=== PATIENT | male | born 1980 | race African-American/Black ===

== ENCOUNTER 2016-11-21 08:47 | Emergency (ER) | payer OTHER, SELFPAY ==
[2016-11-21] MEDS ORDERED: Sodium Chloride 0.9% 2.5 ML Syringe FLUSH PRN (08:59)
[2016-11-21] MEDS ORDERED: Sodium Chloride 0.9% 10 ML Syringe FLUSH PRN (08:59)
[2016-11-21] MEDS ORDERED: Sodium Chloride 0.9% 1,000 ML IV ONE ×2 (09:04→10:58)
--- NOTE | 2016-11-21 09:13 | EDM.PDOC ---
ED HPI GENERAL MEDICAL PROBLEM - General Chief Complaint: General Stated Complaint: FALL Time Seen by Provider: 11/21/16 08:49 Source of Information: Reports: Patient History Limitations: Reports: No limitations - History of Present Illness INITIAL COMMENTS - FREE TEXT/NARRATIVE: History of present illness: [] Patient slipped on the ice 2 days ago and saw black spots but did not lose consciousness. He has abrasion to his forehead and left side of his face and comes in complaining of a headache and he feels he is in sickle cell crisis in his right knee. Patient denies any recent illnesses, fevers, chills, cough, nausea, vomiting, abdominal pain or changes in urine. Review of systems: As per history of present illness and below otherwise all systems reviewed and negative. Past medical history: As per history of present illness and as reviewed below otherwise noncontributory. Surgical history: As per history of present illness and as reviewed below otherwise noncontributory. Social history: No reported history of drug or alcohol abuse. Family history: As per history of present illness and as reviewed below otherwise noncontributory. Physical exam: General: Well developed, well nourished in NAD HEENT: Abrasion to left skin just inferior to his eye, normocephalic, pupils reactive, negative for conjunctival pallor or scleral icterus, mucous membranes moist, throat clear, neck supple, nontender, trachea midline. Lungs: Clear to auscultation, breath sounds equal bilaterally, chest nontender. Heart: S1S2, regular, negative for clicks, rubs, or JVD. Abdomen: Soft, nondistended, nontender. Negative for masses or hepatosplenomegaly. Negative for costovertebral tenderness. Pelvis: Stable nontender. Genitourinary: Deferred. Rectal: Deferred. Extremities: Atraumatic, no sign of external trauma, swelling or effusion to the right knee, negative for cords or calf pain. Neurovascular unremarkable. Neuro: Awake, alert, oriented. Cranial nerves II through XII unremarkable. Cerebellum unremarkable. Motor and sensory unremarkable throughout. Exam nonfocal. Diagnostics: [] CT head was negative for bleed or fracture patient has an elevated white count with a shift however no source of infection denies any fevers. Therapeutics: [] IV hydration and morphine were given with improvement Impression: [] Fall, blunt head trauma, facial abrasion, elevated white count, history of sickle cell disease Plan: [] Followup PMD return if symptoms worsen Definitive disposition and diagnosis as appropriate pending reevaluation and review of above. Right Knee Pain Score (Numeric/FACES): 7 Headache Pain Score (Numeric/FACES): 7 - Related Data Allergies Allergy/AdvReac Type Severity Reaction Status Date / Time No Known Allergies Allergy Verified 11/21/16 09:01 Home Meds: Home Meds . [No Known Home Meds] 11/21/16 [History] Past Medical History Genitourinary History: Reports: None Hematologic History: Reports: Blood transfusion(s), Sickle cell anemia Dermatologic History: Reports: Eczema, Other (see below) Other Dermatologic History: Experiences only when home [facility] - Past Surgical History Male Surgical History: Reports: Other (see below) Other Male Surgeries/Procedures: Ingunial hernia repair 1995 Dermatological Surgical History: Reports: None Social & Family History - Family History Family Medical History: Noncontributory Hematologic: Reports: Sickle cell anemia - Tobacco Use Smoking Status *Q: Former Smoker Years of Tobacco use: 10 Packs/Tins Daily: 1 - Caffeine Use Caffeine Use: Reports: None - Alcohol Use Days Per Week of Alcohol Use: 4 Number of Drinks Per Day: 1 Total Drinks Per Week: 4 - Recreational Drug Use Recreational Drug Use: No ED ROS GENERAL - Review of Systems Review Of Systems: See Below (History of present illness) ED EXAM, GENERAL - Physical Exam Exam: See Below (See history of present illness) Course - Vital Signs Last Recorded V/S: Last Vital Signs Temp 37.2 C 11/21/16 09:02 Pulse 113 H 11/21/16 09:02 Resp 16 11/21/16 09:02 BP 131/73 11/21/16 09:02 Pulse Ox 90 L 11/21/16 09:02 - Orders/Labs/Meds Orders: Active Orders 24 hr Category Date Time Status Head wo Cont [CT] Stat Exams 11/21/16 09:00 Taken Morphine Med 11/21/16 09:23 Active 6 mg IVPUSH ASDIRECTED PRN Sodium Chloride 0.9% [Saline Flush] Med 11/21/16 08:59 Active 10 ml FLUSH ASDIRECTED PRN Sodium Chloride 0.9% [Saline Flush] Med 03/11/17 08:59 Active 2.5 ml FLUSH ASDIRECTED PRN Peripheral IV Insertion Adult [OM.PC] Stat Oth 11/21/16 08:59 Ordered Medication Orders Morphine Sulfate (Morphine) 6 mg IVPUSH ASDIRECTED PRN PRN Reason: Pain Stop: 11/23/16 09:20 Last Admin: 11/21/16 09:31 Dose: 6 mg Sodium Chloride (Saline Flush) 10 ml FLUSH ASDIRECTED PRN PRN Reason: Keep Vein Open Last Admin: 11/21/16 09:17 Dose: 10 ml Sodium Chloride (Saline Flush) 2.5 ml FLUSH ASDIRECTED PRN PRN Reason: Keep Vein Open Last Admin: 11/21/16 09:17 Dose: 2.5 ml Labs: Laboratory Tests 11/21/16 11/21/16 Range/Units 09:16 09:16 WBC 19.18 H (4.0-11.0) K/uL RBC 4.91 (4.50-5.90) M/uL Hgb 13.6 (13.0-17.0) g/dL Hct 37.4 L (38.0-50.0) % MCV 76.2 L (80.0-98.0) fL MCH 27.7 (27.0-32.0) pg MCHC 36.4 (31.0-37.0) g/dL RDW Std Deviation 60.2 (28.0-62.0) fl RDW Coeff of Mckay 22 H (11.0-15.0) % Plt Count 334 (150-400) K/uL MPV 9.10 (7.40-12.00) fL Add Manual Diff YES Neutrophils % (Manual) 82 H (48.0-80.0) % Band Neutrophils % 1 % Lymphocytes % (Manual) 11 L (16.0-40.0) % Monocytes % (Manual) 6 (0.0-15.0) % Nucleated RBC % 4.4 /100WBC Absolute Seg Neuts 15.7 Band Neutrophils # 0.2 Lymphocytes # (Manual) 2.1 Monocytes # (Manual) 1.2 Nucleated RBCs # 0 K/uL Sodium 138 (136-146) mmol/L Potassium 4.1 (3.5-5.1) mmol/L Chloride 107 (98-110) mmol/L Carbon Dioxide 21 (21-31) mmol/L BUN 8 (6.0-23.0) mg/dL Creatinine 1.1 (0.6-1.5) mg/dL Est Cr Clr Drug Dosing 79.20 mL/min Estimated GFR (MDRD) > 60.0 ml/min Glucose 113 H (60-110) mg/dL Calcium 8.8 (8.8-10.8) mg/dL Total Bilirubin 4.1 H (0.1-1.5) mg/dL AST 33 (5-40) IU/L ALT 24 (8-54) IU/L Alkaline Phosphatase 83 (40-150) Total Protein 7.8 (6.0-8.0) g/dL Albumin 4.2 (3.5-5.0) g/dL Globulin 3.6 H (2.0-3.5) g/dL Albumin/Globulin Ratio 1.2 L (1.3-2.8) Meds: Medications Generic Name Dose Route Start Last Admin Trade Name Yoelq PRN Reason Stop Dose Admin Morphine Sulfate 6 mg 11/21/16 09:23 11/21/16 09:31 Morphine IVPUSH 11/23/16 09:20 6 mg ASDIRECTED PRN Administration Pain Sodium Chloride 10 ml 11/21/16 08:59 11/21/16 09:17 Saline Flush FLUSH 10 ml ASDIRECTED PRN Administration Keep Vein Open Sodium Chloride 2.5 ml 11/21/16 08:59 11/21/16 09:17 Saline Flush FLUSH 2.5 ml ASDIRECTED PRN Administration Keep Vein Open Discontinued Medications Generic Name Dose Route Start Last Admin Trade Name Deejay PRN Reason Stop Dose Admin Sodium Chloride 1,000 mls @ 999 mls/hr 11/21/16 09:04 11/21/16 09:17 Normal Saline IV 11/21/16 10:04 999 mls/hr .Bolus ONE Administration Morphine Sulfate 6 mg 11/21/16 09:19 Morphine IVPUSH 11/21/16 11:20 Q1H PRN Pain Departure - Departure Time of Disposition: 10:09 Disposition: Home, Self-Care 01 Condition: good Clinical Impression: Blunt head trauma Qualifiers: Encounter type: initial encounter Qualified Code(s): S09.8XXA - Other specified injuries of head, initial encounter Forms: ED Department Discharge Additional Instructions: The following information is given to patients seen in the emergency department who are being discharged to home. This information is to outline your options for follow-up care. We provide all patients seen in our emergency department with a follow-up referral. The need for follow-up, as well as the timing and circumstances, are variable depending upon the specifics of your emergency department visit. If you don't have a primary care physician on staff, we will provide you with a referral. We always advise you to contact your personal physician following an emergency department visit to inform them of the circumstance of the visit and for follow-up with them and/or the need for any referrals to a consulting specialist. The emergency department will also refer you to a specialist when appropriate. This referral assures that you have the opportunity for follow-up care with a specialist. All of these measure are taken in an effort to provide you with optimal care, which includes your follow-up. Under all circumstances we always encourage you to contact your private physician who remains a resource for coordinating your care. When calling for follow-up care, please make the office aware that this follow-up is from your recent emergency room visit. If for any reason you are refused follow-up, please contact the [facility] Emergency Department at and asked to speak to the emergency department charge nurse. Motrin and/or Tylenol for pain increase fluids. Followup PMD next week turn here symptoms worsen or change [facility] [address] [place] [id number] - My Orders Last 24 Hours: My Active Orders 11/21/16 08:59 Sodium Chloride 0.9% [Saline Flush] 10 ml FLUSH ASDIRECTED PRN Sodium Chloride 0.9% [Saline Flush] 2.5 ml FLUSH ASDIRECTED PRN Peripheral IV Insertion Adult [OM.PC] Stat 11/21/16 09:00 Head wo Cont [CT] Stat 11/21/16 09:23 Morphine 6 mg IVPUSH ASDIRECTED PRN - Assessment/Plan Last 24 Hours: My Active Orders 11/21/16 08:59 Sodium Chloride 0.9% [Saline Flush] 10 ml FLUSH ASDIRECTED PRN Sodium Chloride 0.9% [Saline Flush] 2.5 ml FLUSH ASDIRECTED PRN Peripheral IV Insertion Adult [OM.PC] Stat 11/21/16 09:00 Head wo Cont [CT] Stat 11/21/16 09:23 Morphine 6 mg IVPUSH ASDIRECTED PRN
[2016-11-21] MEDS ORDERED: Morphine 2 MG/ML Syringe IVPUSH PRN ×3 (09:19→11:05)
[2016-11-21 09:43] LABS: CHLORIDE,CL 107 mmol/L (98-110); SODIUM,NA 138 mmol/L (136-146)
[2016-11-21] MEDS ORDERED: Acetaminophen 325 MG Tab PO ONE (10:55)
[2016-11-21] MEDS ORDERED: cefTRIAXone 1 GM in Premix Bag 1 BAG IV ONE (12:18)
[2016-11-21] MEDS ORDERED: Bacitracin Oint 1 GM U/D Packet ONE (12:33)
[2016-11-21] MEDS ORDERED: Bacitracin Oint 1 GM U/D Packet TOP ONE (12:34)
[2016-11-21 13:37] VITALS: BP 125/76
--- NOTE | 2016-11-23 20:05 | CT ---
EXAM DATE: 11/21/16 PATIENT'S AGE: 36 Patient: [facility] Facility: [place], [place] Site . Site : 1980 Study: CT Head wo cont [id number] 9:30:54 AM Ordering Physician: Jose Guadalupe Kraft Final Report: Indication: Fall. Head injury. Comparison: None. Technique: [place] CT of the head without contrast. Findings: Normal brain parenchymal morphology. No acute intracranial hemorrhage, acute infarct, mass effect, or fracture. No midline shift. No abnormal ventricular dilatation. Normal calvarium and skull base. Visualized paranasal sinuses and mastoid air cells are clear. Visualized orbits are unremarkable. Impression: 1. No acute intracranial abnormality. 2. Normal brain parenchymal morphology. Dictated by Donnie Bustillo MD @ Nov 21 2016 9:38AM (Electronic Signature) Report Signed by Proxy and Original Signed Document filed in the Medical Record. [facility]
--- NOTE | 2016-11-23 20:07 | CR ---
EXAM DATE: 11/21/16 PATIENT'S AGE: 36 Patient: [facility] Facility: [place], [place] Site . Site : 1980 Study: XRay Chest [id number]/11/2017 11:25:25 AM Ordering Physician: Jose Guadalupe Kraft Final Report: Indication: Pain. SOB. Sickle cell anemia. Technique: PA and lateral. Comparison: 07/01/2016. Findings: Lungs and pleural space is clear. Heart size and pulmonary vasculature within normal limits. Vertebral body endplate impressions at numerous levels, characteristic of sickle cell anemia. No other bony abnormality. Impression: 1. Clear lungs. 2. Vertebral body abnormalities characteristic of sickle cell anemia, as before. Dictated by Raman Amaya MD @ Nov 21 2016 11:37AM (Electronic Signature) Report Signed by Proxy and Original Signed Document filed in the Medical Record. [facility]
== END 2016-11-21 13:00 | disposition home or self-care (01) ==
LOC: MW.ED 08:47
DX: S09.90XA Unspecified injury of head, initial encounter (principal); S00.81XA Abrasion of other part of head, initial encounter; Z87.891 Personal history of nicotine dependence; W00.0XXA Fall on same level due to ice and snow, initial encounter
CPT/HCPCS: 36415; 70450; 71020; 80053; 81001; 85025; 87040; 96361; 96365; 96375; 96376; 99284; A9270; J0696; J2270; J7040

== ENCOUNTER 2016-11-22 13:55 | Inpatient (IN) | payer OTHER, SELFPAY ==
[2016-11-22] MEDS ORDERED: Sodium Chloride 0.9% 1,000 ML IV ONE (13:56)
[2016-11-22] MEDS ORDERED: Sodium Chloride 0.9% 2.5 ML Syringe FLUSH PRN (13:56)
[2016-11-22] MEDS ORDERED: Sodium Chloride 0.9% 10 ML Syringe FLUSH PRN (13:56)
[2016-11-22] MEDS ORDERED: Albuterol/Ipratropium 3.0-0.5 MG/3 ML Neb Soln NEB ONE (13:58)
[2016-11-22] MEDS ORDERED: Ibuprofen 600 MG Tab PO ONE (14:18)
[2016-11-22 14:31] LABS: ACETAMINOPHEN < 3.0 ug/mL; CHLORIDE,CL 104 mmol/L (98-110); SODIUM,NA 135 mmol/L (136-146)
[2016-11-22] MEDS ORDERED: Levofloxacin/Dextrose 5%-Water 500 MG in Premix Bag 1 BAG IV ONE (15:32)
[2016-11-22] MEDS ORDERED: Morphine 2 MG/ML Syringe IVPUSH PRN (16:50)
[2016-11-22] MEDS ORDERED: Ondansetron 4 MG/2 ML SDV IVPUSH PRN (16:50)
--- NOTE | 2016-11-22 16:56 | PCM.HP ---
H&P History of Present Illness - General Admit Problem/Dx: Admission Diagnosis/Problem Admission Diagnosis/Problem Pneumonia - History of Present Illness Initial Comments - Free Text/Narative: 36 yo male with pmh of sickle cell disease. He reports that he slipped and fell two days ago. He was seen in the ED yesterday for this as he was not feeling well. He was noted to have a fever and WBC of 19,000. CT head and CXR were unremarkable. He was given Rocephin and discharged home. He presents again today reporting fevers and chills, He has a cough with shortness of breath but denies any chest pain. He denies any myalgias or joint pain which he gets with his sickle cell crisis. He reports recent travel to [facility] and [place]. In the ED his WBC increased to 24,000 and repeat CXR showed right lung infiltrate. He was given Levaquin and one liter bolus on NS. Headache Pain Score (Numeric/FACES): 5 - Related Data Allergies/Adverse Reactions: Allergies Allergy/AdvReac Type Severity Reaction Status Date / Time No Known Allergies Allergy Verified 11/22/16 14:06 Home Medications: Home Meds . [No Known Home Meds] 11/21/16 [History] Past Medical History HEENT History: Reports: None Cardiovascular History: Reports: None Respiratory History: Reports: None Gastrointestinal History: Reports: None Genitourinary History: Reports: None Musculoskeletal History: Reports: None Neurological History: Reports: None, Headaches, chronic Psychiatric History: Reports: None Endocrine/Metabolic History: Reports: None Hematologic History: Reports: Blood transfusion(s), Sickle cell anemia Immunologic History: Reports: None Oncologic (Cancer) History: Reports: None Dermatologic History: Reports: Eczema, Other (see below) Other Dermatologic History: Experiences only when home [facility] - Infectious Disease History Infectious Disease History: Reports: None - Past Surgical History Head Surgeries/Procedures: Reports: None HEENT Surgical History: Reports: None Cardiovascular Surgical History: Reports: None Respiratory Surgical History: Reports: None GI Surgical History: Reports: None, Hernia, inguinal Other GI Surgeries/Procedures: Ingunial hernia repair 1996 Male Surgical History: Reports: None Endocrine Surgical History: Reports: None Neurological Surgical History: Reports: None Musculoskeletal Surgical History: Reports: None Dermatological Surgical History: Reports: None Social & Family History - Family History Family Medical History: Noncontributory HEENT: Reports: None Hematologic: Reports: Sickle cell anemia - Tobacco Use Smoking Status *Q: Former Smoker Years of Tobacco use: 10 Packs/Tins Daily: 0.5 Used Tobacco, but Quit: Yes Month Tobacco Last Used: 09/2013 Second Hand Smoke Exposure: No - Caffeine Use Caffeine Use: Reports: None - Alcohol Use Days Per Week of Alcohol Use: 4 Number of Drinks Per Day: 1 Total Drinks Per Week: 4 Date of Last Drink: 11/17/16 - Recreational Drug Use Recreational Drug Use: No H&P Review of Systems - Review of Systems: Review Of Systems: See Below General: Reports: fever, chills HEENT: Reports: no symptoms. Denies: eye pain, headaches, sinus congestion, sore throat, visual changes Pulmonary: Reports: cough Cardiovascular: Reports: no symptoms Gastrointestinal: Reports: No symptoms Genitourinary: Reports: no symptoms Musculoskeletal: Reports: no symptoms Skin: Reports: no symptoms. Denies: rash, erythema Psychiatric: Reports: no symptoms Neurological: Reports: no symptoms Hematologic/Lymphatic: Reports: no symptoms. Denies: easy bleeding, easy bruising, swollen glands Immunologic: Reports: no symptoms Exam - Exam Exam: See Below - Vital Signs Vital Signs: Last Vital Signs Temp 37.2 C 11/22/16 15:45 Pulse 89 11/22/16 15:45 Resp 16 11/22/16 15:45 BP 126/70 11/22/16 15:45 Pulse Ox 93 L 11/22/16 15:45 Weight: 66.497 kg - Exam General: alert, oriented, 4 HEENT: Mucosa moist & pink, Posterior pharynx clear, Scleral icterus Neck: supple, trachea midline. No: lymphadenopathy, JVD Lungs: Clear to auscultation, Normal respiratory effort. No: Decreased breath sounds, Crackles, Rales, Wheezing Cardiovascular: regular rate, regular rhythm. No: systolic murmur, diastolic murmur Abdomen: normal bowel sounds, soft. No: peritoneal signs, distention, tenderness, hepatomegaly, splenomegaly Skin: warm, dry, intact Neurological: No: focal deficit - Patient Data Result Diagrams: 11/23/16 06:51 11/23/16 06:51 *Q Meaningful Use (ADM) - VTE *Q VTE Criteria *Q: - Stroke *Q Stroke Criteria *Q: - AMI *Q AMI Criteria *Q: Problem List Initiated/Reviewed/Updated: Yes Orders Last 24hrs: Active Orders 24 hr Category Date Time Status Dextrose 5%-1/2 Normal Saline @ 150 MLS/HR(1000ml) Med 11/22/16 17:00 Ordered Dextrose 5%-0.45% NaCl [Dextrose 5%-1/2 NS] 1,000 ml IV ASDIRECTED Levofloxacin/Dextrose 5%-Water [Levaquin in D5W 750 MG/ Med 11/23/16 17:00 Ordered 150 ML] 750 mg Premix Bag 1 bag IV Q24H Medication Orders Dextrose/Sodium Chloride (Dextrose 5%-1/2 Ns) 1,000 mls @ 150 mls/hr IV ASDIRECTED FRANNY Sodium Chloride (Saline Flush) 10 ml FLUSH ASDIRECTED PRN PRN Reason: Keep Vein Open Last Admin: 11/22/16 14:16 Dose: 10 ml Sodium Chloride (Saline Flush) 2.5 ml FLUSH ASDIRECTED PRN PRN Reason: Keep Vein Open Last Admin: 11/22/16 14:16 Dose: 2.5 ml Assessment/Plan Comment:: 36 yo male admitted with fevers, new infiltrate on CXR and cough. We will treat for community acquired pneumonia but cannot exclude a mild acute chest syndrome. We will give Levaquin and IVFs of D5 1/2NS. Blood and sputum cultures are pending.
[2016-11-22] MEDS: Dextrose 5%-0.45% NaCl 1,000 ML IV SCH (17:16)
[2016-11-22] MEDS: Heparin Sodium 5,000 Units/ML Vial SUBCUT SCH (18:53)
[2016-11-23] MEDS: Acetaminophen 325 MG Tab PO PRN ×4 (00:27→23:16)
[2016-11-23] MEDS: Dextrose 5%-0.45% NaCl 1,000 ML IV SCH ×3 (00:28→16:30)
[2016-11-23] MEDS ORDERED: Benzonatate 100 MG Cap PO PRN (00:37)
[2016-11-23] MEDS: Heparin Sodium 5,000 Units/ML Vial SUBCUT SCH ×3 (02:56→16:15)
[2016-11-23 07:43] LABS: CHLORIDE,CL 106 mmol/L (98-110); SODIUM,NA 137 mmol/L (136-146)
[2016-11-23] MEDS ORDERED: Albuterol/Ipratropium 3.0-0.5 MG/3 ML Neb Soln NEB PRN (09:01)
[2016-11-23] MEDS ORDERED: Albuterol/Ipratropium 3.0-0.5 MG/3 ML Neb Soln ONE (09:03)
[2016-11-23] MEDS ORDERED: Piperacillin/Tazobactam 4.5 GM in Sodium Chloride 0.9% 100 ML IV SCH (09:15)
[2016-11-23] MEDS ORDERED: Iopamidol 755 MG/ML 500 ML Multipack Bottle IVPUSH STA (09:21)
[2016-11-23] MEDS: Oseltamivir 75 MG Cap PO SCH ×2 (10:19→20:52)
--- NOTE | 2016-11-23 11:35 | PCM.PN ---
- General Info Date of Service: 11/23/16 - Review of Systems Systems Review Comment:: Patient reports fevers and chills last night, this morning was desating to the 70s on NC, feeling better with nonrebreather. - Patient Data Vitals - most recent: Last Vital Signs Temp 38.1 C 11/23/16 09:15 Pulse 135 H 11/23/16 09:15 Resp 20 11/23/16 09:15 BP 125/82 11/23/16 09:15 Pulse Ox 92 L 11/23/16 09:40 Weight - most recent: 66.497 kg I&O - last 24 hours: Intake & Output 11/22/16 11/23/16 11/23/16 22:59 06:59 14:59 Intake Total 0 800 Output Total 200 850 Balance -200 -50 Lab Results last 24 hrs: Laboratory Results - last 24 hr 11/23/16 11/23/16 Range/Units 06:51 06:51 WBC 28.88 H (4.0-11.0) K/uL RBC 4.67 (4.50-5.90) M/uL Hgb 13.2 (13.0-17.0) g/dL Hct 36.2 L (38.0-50.0) % MCV 77.5 L (80.0-98.0) fL MCH 28.3 (27.0-32.0) pg MCHC 36.5 (31.0-37.0) g/dL RDW Std Deviation 62.3 H (28.0-62.0) fl RDW Coeff of Mckay 23 H (11.0-15.0) % Plt Count 304 (150-400) K/uL MPV 9.80 (7.40-12.00) fL Add Manual Diff YES Neutrophils % (Manual) 67 (48.0-80.0) % Band Neutrophils % 5 % Lymphocytes % (Manual) 22 (16.0-40.0) % Monocytes % (Manual) 6 (0.0-15.0) % Nucleated RBC % 5.3 /100WBC Absolute Seg Neuts 19.3 Band Neutrophils # 1.4 Lymphocytes # (Manual) 6.4 Monocytes # (Manual) 1.7 Nucleated RBCs 5 % Nucleated RBCs # 1 K/uL Sodium 137 (136-146) mmol/L Potassium 4.2 (3.5-5.1) mmol/L Chloride 106 (98-110) mmol/L Carbon Dioxide 23 (21-31) mmol/L BUN 6 (6.0-23.0) mg/dL Creatinine 1.3 (0.6-1.5) mg/dL Est Cr Clr Drug Dosing 66.92 mL/min Estimated GFR (MDRD) > 60.0 ml/min Glucose 141 H (60-110) mg/dL Calcium 8.3 L (8.8-10.8) mg/dL Total Bilirubin 7.5 H (0.1-1.5) mg/dL AST 26 (5-40) IU/L ALT 20 (8-54) IU/L Alkaline Phosphatase 71 (40-150) Total Protein 7.1 (6.0-8.0) g/dL Albumin 3.5 (3.5-5.0) g/dL Globulin 3.6 H (2.0-3.5) g/dL Albumin/Globulin Ratio 1.0 L (1.3-2.8) Moises Results last 24 hrs: Microbiology 11/22/16 17:50 Influenza Type A Antigen Screen - Final Nasopharyngeal Swab - Nare, Right NEGATIVE INFLUENZA A VIRUS AG Influenza Type B Antigen Screen - Final NEGATIVE INFLUENZA B VIRUS AG Med Orders - Current: Current Medications Acetaminophen (Tylenol) 650 mg PO Q4H PRN PRN Reason: Pain (Mild 1-3)/fever Last Admin: 11/23/16 09:04 Dose: 650 mg Albuterol/Ipratropium (Duoneb 3.0-0.5 Mg/3 Ml) 3 ml NEB Q4HRRT PRN PRN Reason: Wheezing Benzonatate (Tessalon Perles) 100 mg PO TID PRN PRN Reason: Cough Heparin Sodium (Porcine) (Heparin Sodium) 5,000 units SUBCUT Q8H [facility] Last Admin: 11/23/16 09:22 Dose: 5,000 units Dextrose/Sodium Chloride (Dextrose 5%-1/2 Ns) 1,000 mls @ 150 mls/hr IV ASDIRECTED [facility] Last Admin: 11/23/16 06:41 Dose: 150 mls/hr Levofloxacin/Dextrose 750 mg/ (Premix) 150 mls @ 100 mls/hr IV Q24H [facility] Vancomycin HCl 1 gm/ Sodium (Chloride) 250 mls @ 250 mls/hr IV Q12H [facility] Last Admin: 11/23/16 10:19 Dose: 250 mls/hr Piperacillin Sod/Tazobactam (Sod 4.5 gm/ Sodium Chloride) 100 mls @ 100 mls/hr IV Q6H [facility] Morphine Sulfate (Morphine) 2 mg IVPUSH Q2H PRN PRN Reason: Pain (severe 7-10) Stop: 11/23/16 16:51 Ondansetron HCl (Zofran) 4 mg IVPUSH Q4H PRN PRN Reason: Nausea Oseltamivir Phosphate (Tamiflu) 75 mg PO BID [facility] Last Admin: 11/23/16 10:19 Dose: 75 mg Sodium Chloride (Saline Flush) 10 ml FLUSH ASDIRECTED PRN PRN Reason: Keep Vein Open Last Admin: 11/22/16 14:16 Dose: 10 ml Sodium Chloride (Saline Flush) 2.5 ml FLUSH ASDIRECTED PRN PRN Reason: Keep Vein Open Last Admin: 11/22/16 14:16 Dose: 2.5 ml Vancomycin HCl (Pharmacy To Dose - Vancomycin) 1 dose .XX ASDIRECTED FRANNY Discontinued Medications Albuterol/Ipratropium (Duoneb 3.0-0.5 Mg/3 Ml) 3 ml NEB ONETIME ONE Stop: 11/22/16 13:59 Last Admin: 11/22/16 14:07 Dose: 3 ml Albuterol/Ipratropium (Duoneb 3.0-0.5 Mg/3 Ml) Confirm Administered Dose 3 ml .ROUTE .STK-MED ONE Stop: 11/23/16 09:04 Last Admin: 11/23/16 09:09 Dose: Not Given Sodium Chloride (Normal Saline) 1,000 mls @ 999 mls/hr IV .Bolus ONE Stop: 11/22/16 14:56 Last Admin: 11/22/16 14:16 Dose: 999 mls/hr Levofloxacin/Dextrose 500 mg/ (Premix) 100 mls @ 100 mls/hr IV ONETIME ONE Stop: 11/22/16 16:31 Last Admin: 11/22/16 15:43 Dose: 100 mls/hr Piperacillin Sod/Tazobactam (Sod 4.5 gm/ Sodium Chloride) 100 mls @ 100 mls/hr IV Q8H [facility] Last Admin: 11/23/16 09:22 Dose: 100 mls/hr Ibuprofen (Motrin) 600 mg PO ONETIME ONE Stop: 11/22/16 14:19 Last Admin: 11/22/16 14:24 Dose: 600 mg Iopamidol (Isovue Multipack-370 (76%)) 50 ml IVPUSH ONETIME STA Stop: 11/23/16 09:22 Last Admin: 11/23/16 09:22 Dose: 50 ml - Exam General: alert, oriented Neck: no JVD Lungs: Clear to auscultation, Normal respiratory effort Cardiovascular: regular rate, regular rhythm Abdomen: bowel sounds present, soft, no tenderness, no distension Extremities: no edema Skin: warm, dry, intact Neurological: no new focal deficit - Problem List Review Problem List Initiated/Reviewed/Updated: Yes - My Orders Last 24 Hours: My Active Orders 11/22/16 16:50 Intake and Output [RC] QSHIFT Oxygen Therapy [RC] PRN Up ad Ananya [RC] ASDIRECTED VTE/DVT Education [RC] PER UNIT ROUTINE Vital Signs [RC] Q4H CULTURE SPUTUM + SMEAR [RM] Stat Acetaminophen [Tylenol] 650 mg PO Q4H PRN Morphine 2 mg IVPUSH Q2H PRN Ondansetron [Zofran] 4 mg IVPUSH Q4H PRN Sequential Compression Device [OM.PC] Per Unit Routine Resuscitation Status Routine 11/22/16 16:52 Antiembolic Devices [RC] PER UNIT ROUTINE 11/22/16 17:00 Dextrose 5%-0.45% NaCl [Dextrose 5%-1/2 NS] 1,000 ml IV ASDIRECTED Heparin Sodium 5,000 units SUBCUT Q8H 11/23/16 00:15 CULTURE URINE [RM] Stat 11/23/16 00:37 Benzonatate [Tessalon Perles] 100 mg PO TID PRN 11/23/16 09:01 RT Aerosol Therapy [RC] ASDIRECTED Albuterol/Ipratropium [DuoNeb 3.0-0.5 MG/3 ML] 3 ml NEB Q4HRRT PRN 11/23/16 09:02 CXR [Chest 1V Frontal] [CR] Stat 11/23/16 09:15 Chest PE [Ang Chest] [CT] Routine Vancomycin Pharmacy to Dose [Pharmacy to Dose - Vancomycin] 1 dose .XX ASDIRECTED 11/23/16 09:30 Oseltamivir [Tamiflu] 75 mg PO BID 11/23/16 09:40 Transfer Patient (Change bed) [ADT] Routine 11/23/16 11:00 Vancomycin [Vancocin] 1 gm Sodium Chloride 0.9% [Normal Saline] 250 ml IV Q12H 11/23/16 15:00 Piperacillin/Tazobactam [Piperacil-Tazobact] 4.5 gm Sodium Chloride 0.9% [ Normal Saline] 100 ml IV Q6H 11/23/16 17:00 Levofloxacin/Dextrose 5%-Water [Levaquin in D5W 750 MG/150 ML] 750 mg Premix Bag 1 bag IV Q24H 11/24/16 05:11 CBC WITH AUTO DIFF [HEME] AM COMPREHENSIVE METABOLIC PN,CMP [CHEM] AM 11/24/16 22:30 VANCOMYCIN TROUGH [CHEM] Routine 11/25/16 05:11 CBC WITH AUTO DIFF [HEME] AM COMPREHENSIVE METABOLIC PN,CMP [CHEM] AM - Plan Plan:: 36 yo male admitted with fevers, new infiltrate on CXR and cough. Transfering patient to ICU due to worsening hypoxia requiring nonrebreather, persistent fevers and worsening leukocytosis. CT chest was negative for PE but showed bilateral perihilar consolidation. Suspect acute bacterial pneumonia vs acute chest syndrome. Will continue Levaquin and expanded antibiotic coverage with vancomycin, zosyn, and tamiflu. For possible acute chest syndrome will c ontinue IVFs of D5 1/2NS. Blood and sputum cultures are pending. Echocardiogram ordered.
[2016-11-23] MEDS: Bacitracin Oint 1 GM U/D Packet TOP SCH ×2 (12:10→21:30)
[2016-11-23] MEDS: Piperacillin/Tazobactam 4.5 GM in Sodium Chloride 0.9% 100 ML IV SCH ×2 (15:22→20:52)
[2016-11-23] MEDS: Levofloxacin/Dextrose 5%-Water 750 MG in Premix Bag 1 BAG IV SCH (16:15)
--- NOTE | 2016-11-23 21:31 | CR ---
EXAM DATE: 11/22/16 PATIENT'S AGE: 36 Patient: AKIL [facility] Facility: [place], [place] Site . Site : 1980 Study: XRay Chest [id number]/12/2017 3:07:11 PM Ordering Physician: Jose Guadalupe Kraft Final Report: INDICATION: Shortness of breath. Technique: AP portable chest x-ray. Comparison: Chest x-ray yesterday. Findings: The vertebral body changes described on yesterday`s exam are not as well seen without lateral view. The bones are overall increased in density likely related to the underlying sickle cell anemia but this is stable. Focal increase sclerosis involving the right greater than left humeral heads with the right humeral head also having some irregularity. Findings suggest avascular necrosis/ bone infarct. Heart size is within normal limits. Platelike atelectasis has developed in the left mid lung. Mild opacity has developed in the perihilar and infrahilar regions suggesting early infiltrate in this region. Lungs otherwise clear. Slight blunting of the right costophrenic angle is new and could be related to a tiny amount of pleural fluid. Chest otherwise unremarkable. Dictated by Madhav Mccollum MD @ Nov 22 2016 3:39PM (Electronic Signature) Report Signed by Proxy and Original Signed Document filed in the Medical Record. [facility]
[2016-11-24] MEDS: Heparin Sodium 5,000 Units/ML Vial SUBCUT SCH ×3 (00:58→09:27)
[2016-11-24] MEDS: Piperacillin/Tazobactam 4.5 GM in Sodium Chloride 0.9% 100 ML IV SCH ×4 (02:00→20:29)
[2016-11-24] MEDS: Dextrose 5%-0.45% NaCl 1,000 ML IV SCH ×3 (03:59→23:43)
[2016-11-24 05:47] LABS: CHLORIDE,CL 109 mmol/L (98-110); SODIUM,NA 140 mmol/L (136-146)
[2016-11-24] MEDS: Bacitracin Oint 1 GM U/D Packet TOP SCH ×3 (06:33→23:43)
[2016-11-24] MEDS: Acetaminophen 325 MG Tab PO PRN ×2 (07:54→09:26)
[2016-11-24] MEDS: Oseltamivir 75 MG Cap PO SCH ×2 (09:27→20:22)
[2016-11-24] MEDS: oxyCODONE 5 MG Tab PO PRN ×2 (10:56→20:22)
[2016-11-24] MEDS: Enoxaparin 40 MG/0.4 ML Syringe SUBCUT SCH (10:56)
--- NOTE | 2016-11-24 10:58 | CR ---
EXAM DATE: 11/22/16 PATIENT'S AGE: 36 Patient: [facility] Facility: [place], [place] Site . Site : 1980 Study: XRay Chest [id number]/13/2017 9:20:14 AM Ordering Physician: Adrian Zamora Final Report: HISTORY: Shortness of breath. FINDINGS: AP portable chest radiograph is compared with 22 November 2016. The cardiac silhouette is acceptable size. There is increasing perihilar infiltrates, right greater than left. No pleural effusion is seen. IMPRESSION: Increasing perihilar infiltrates, right greater than left. Dictated by Eve Son MD @ 11/23/2016 9:25:07 AM Dictated by: Eve Son MD @ 11/23/2016 09:25:22 (Electronic Signature) Report Signed by Proxy and Original Signed Document filed in the Medical Record. [facility]
--- NOTE | 2016-11-24 12:00 | PCM.PN ---
- Review of Systems Systems Review Comment:: feeling better, shortness of breath improving - Patient Data Vitals - most recent: Last Vital Signs Temp 37.6 C 11/24/16 10:00 Pulse 135 H 11/23/16 09:15 Resp 28 H 11/24/16 11:00 BP 118/73 11/24/16 11:00 Pulse Ox 93 L 11/24/16 11:00 Weight - most recent: 66.1 kg I&O - last 24 hours: Intake & Output 11/23/16 11/24/16 11/24/16 22:59 06:59 14:59 Intake Total 2150 2150 100 Output Total 870 1060 Balance 1280 1090 100 Lab Results last 24 hrs: Laboratory Results - last 24 hr 11/24/16 11/24/16 Range/Units 04:43 04:43 WBC 21.37 H (4.0-11.0) K/uL RBC 4.42 L (4.50-5.90) M/uL Hgb 12.2 L (13.0-17.0) g/dL Hct 33.9 L (38.0-50.0) % MCV 76.7 L (80.0-98.0) fL MCH 27.6 (27.0-32.0) pg MCHC 36.0 (31.0-37.0) g/dL RDW Std Deviation 60.3 (28.0-62.0) fl RDW Coeff of Mckay 22 H (11.0-15.0) % Plt Count 296 (150-400) K/uL MPV 10.30 (7.40-12.00) fL Add Manual Diff YES Neutrophils % (Manual) 67 (48.0-80.0) % Band Neutrophils % 2 % Lymphocytes % (Manual) 20 (16.0-40.0) % Monocytes % (Manual) 9 (0.0-15.0) % Eosinophils % (Manual) 1 (0.0-7.0) % Nucleated RBC % 2.9 /100WBC Absolute Seg Neuts 14.3 Band Neutrophils # 0.4 Lymphocytes # (Manual) 4.3 Monocytes # (Manual) 1.9 Eosinophils # (Manual) 0.2 Nucleated RBCs # 0 K/uL Pathologist Review Not Reportable Sodium 140 (136-146) mmol/L Potassium 4.2 (3.5-5.1) mmol/L Chloride 109 (98-110) mmol/L Carbon Dioxide 21 (21-31) mmol/L BUN 5 L (6.0-23.0) mg/dL Creatinine 1.2 (0.6-1.5) mg/dL Est Cr Clr Drug Dosing 72.50 mL/min Estimated GFR (MDRD) > 60.0 ml/min Glucose 128 H (60-110) mg/dL Calcium 8.3 L (8.8-10.8) mg/dL Total Bilirubin 6.7 H (0.1-1.5) mg/dL AST 27 (5-40) IU/L ALT 23 (8-54) IU/L Alkaline Phosphatase 65 (40-150) Total Protein 6.3 (6.0-8.0) g/dL Albumin 3.2 L (3.5-5.0) g/dL Globulin 3.1 (2.0-3.5) g/dL Albumin/Globulin Ratio 1.0 L (1.3-2.8) Moises Results last 24 hrs: Microbiology 11/23/16 11:15 Aerobic Blood Culture - Preliminary Blood NO GROWTH AFTER 1 DAY Anaerobic Blood Culture - Preliminary NO GROWTH AFTER 1 DAY 11/23/16 11:02 Aerobic Blood Culture - Preliminary Blood NO GROWTH AFTER 1 DAY Anaerobic Blood Culture - Preliminary NO GROWTH AFTER 1 DAY 11/23/16 00:15 Urine Culture - Final Urine, Clean Catch No Growth Med Orders - Current: Current Medications Acetaminophen (Tylenol) 650 mg PO Q4H PRN PRN Reason: Pain (Mild 1-3)/fever Last Admin: 11/24/16 09:26 Dose: 650 mg Albuterol/Ipratropium (Duoneb 3.0-0.5 Mg/3 Ml) 3 ml NEB Q4HRRT PRN PRN Reason: Wheezing Bacitracin (Bacitracin Oint 1 Gm) 1 dose TOP TID FRANNY Last Admin: 11/24/16 06:33 Dose: 1 dose Benzonatate (Tessalon Perles) 100 mg PO TID PRN PRN Reason: Cough Last Admin: 11/23/16 23:16 Dose: 100 mg Enoxaparin Sodium (Lovenox) 40 mg SUBCUT Q24H COUNTS INCLUDE 234 BEDS AT THE [facility] Last Admin: 11/24/16 10:56 Dose: Not Given Dextrose/Sodium Chloride (Dextrose 5%-1/2 Ns) 1,000 mls @ 150 mls/hr IV ASDIRECTED COUNTS INCLUDE 234 BEDS AT THE [facility] Last Admin: 11/24/16 03:59 Dose: 150 mls/hr Levofloxacin/Dextrose 750 mg/ (Premix) 150 mls @ 100 mls/hr IV Q24H COUNTS INCLUDE 234 BEDS AT THE [facility] Last Admin: 11/23/16 16:15 Dose: 100 mls/hr Vancomycin HCl 1 gm/ Sodium (Chloride) 250 mls @ 250 mls/hr IV Q12H COUNTS INCLUDE 234 BEDS AT THE [facility] Last Admin: 11/24/16 10:45 Dose: 250 mls/hr Piperacillin Sod/Tazobactam (Sod 4.5 gm/ Sodium Chloride) 100 mls @ 100 mls/hr IV Q6H COUNTS INCLUDE 234 BEDS AT THE [facility] Last Admin: 11/24/16 09:27 Dose: 100 mls/hr Ondansetron HCl (Zofran) 4 mg IVPUSH Q4H PRN PRN Reason: Nausea Oseltamivir Phosphate (Tamiflu) 75 mg PO BID COUNTS INCLUDE 234 BEDS AT THE [facility] Last Admin: 11/24/16 09:27 Dose: 75 mg Oxycodone HCl (Oxycodone) 5 mg PO Q4H PRN PRN Reason: Pain Last Admin: 11/24/16 10:56 Dose: 5 mg Sodium Chloride (Saline Flush) 10 ml FLUSH ASDIRECTED PRN PRN Reason: Keep Vein Open Last Admin: 11/22/16 14:16 Dose: 10 ml Sodium Chloride (Saline Flush) 2.5 ml FLUSH ASDIRECTED PRN PRN Reason: Keep Vein Open Last Admin: 11/22/16 14:16 Dose: 2.5 ml Vancomycin HCl (Pharmacy To Dose - Vancomycin) 1 dose .XX ASDIRECTED COUNTS INCLUDE 234 BEDS AT THE [facility] Discontinued Medications Albuterol/Ipratropium (Duoneb 3.0-0.5 Mg/3 Ml) 3 ml NEB ONETIME ONE Stop: 11/22/16 13:59 Last Admin: 11/22/16 14:07 Dose: 3 ml Albuterol/Ipratropium (Duoneb 3.0-0.5 Mg/3 Ml) Confirm Administered Dose 3 ml .ROUTE .STK-MED ONE Stop: 11/23/16 09:04 Last Admin: 11/23/16 09:09 Dose: Not Given Heparin Sodium (Porcine) (Heparin Sodium) 5,000 units SUBCUT Q8H COUNTS INCLUDE 234 BEDS AT THE [facility] Last Admin: 11/24/16 09:27 Dose: Not Given Sodium Chloride (Normal Saline) 1,000 mls @ 999 mls/hr IV .Bolus ONE Stop: 11/22/16 14:56 Last Admin: 11/22/16 14:16 Dose: 999 mls/hr Levofloxacin/Dextrose 500 mg/ (Premix) 100 mls @ 100 mls/hr IV ONETIME ONE Stop: 11/22/16 16:31 Last Admin: 11/22/16 15:43 Dose: 100 mls/hr Piperacillin Sod/Tazobactam (Sod 4.5 gm/ Sodium Chloride) 100 mls @ 100 mls/hr IV Q8H COUNTS INCLUDE 234 BEDS AT THE [facility] Last Admin: 11/23/16 09:22 Dose: 100 mls/hr Ibuprofen (Motrin) 600 mg PO ONETIME ONE Stop: 11/22/16 14:19 Last Admin: 11/22/16 14:24 Dose: 600 mg Iopamidol (Isovue Multipack-370 (76%)) 50 ml IVPUSH ONETIME STA Stop: 11/23/16 09:22 Last Admin: 11/23/16 09:22 Dose: 50 ml Morphine Sulfate (Morphine) 2 mg IVPUSH Q2H PRN PRN Reason: Pain (severe 7-10) Stop: 11/23/16 16:51 - Exam General: alert, oriented Lungs: Clear to auscultation, Normal respiratory effort Cardiovascular: Regular Rate, Regular Rhythm Extremities: no edema Skin: warm, dry, intact - Problem List Review Problem List Initiated/Reviewed/Updated: Yes - My Orders Last 24 Hours: My Active Orders 11/23/16 11:00 Vancomycin [Vancocin] 1 gm Sodium Chloride 0.9% [Normal Saline] 250 ml IV Q12H 11/23/16 11:31 Echo Comp wo Cont [US] Routine 11/23/16 12:00 Bacitracin [Bacitracin Oint 1 GM] 1 dose TOP TID 11/23/16 15:00 Piperacillin/Tazobactam [Piperacil-Tazobact] 4.5 gm Sodium Chloride 0.9% [ Normal Saline] 100 ml IV Q6H 11/23/16 17:00 Levofloxacin/Dextrose 5%-Water [Levaquin in D5W 750 MG/150 ML] 750 mg Premix Bag 1 bag IV Q24H 11/24/16 10:40 oxyCODONE 5 mg PO Q4H PRN 11/24/16 10:45 Enoxaparin [Lovenox] 40 mg SUBCUT Q24H 11/24/16 22:30 VANCOMYCIN TROUGH [CHEM] Routine 11/25/16 05:11 CBC WITH AUTO DIFF [HEME] AM COMPREHENSIVE METABOLIC PN,CMP [CHEM] AM - Plan Plan:: 36 yo male with pneumonia and possible acute chest syndrome. Leukocytosis improving on broad spectrum antibiotics. Will continue zosyn, levaquin and vancomycin. Will continue IV fluids with D5 1/2 NS saline. Patient was instructed on his high risk of developing DVT but refuses pharmacological prophylaxis.
[2016-11-24] MEDS: Levofloxacin/Dextrose 5%-Water 750 MG in Premix Bag 1 BAG IV SCH (16:03)
[2016-11-25] MEDS: Piperacillin/Tazobactam 4.5 GM in Sodium Chloride 0.9% 100 ML IV SCH ×4 (03:26→20:29)
[2016-11-25 05:39] LABS: CHLORIDE,CL 110 mmol/L (98-110); SODIUM,NA 140 mmol/L (136-146)
[2016-11-25] MEDS: Bacitracin Oint 1 GM U/D Packet TOP SCH ×3 (06:37→21:31)
[2016-11-25] MEDS: Dextrose 5%-0.45% NaCl 1,000 ML IV SCH ×2 (08:33→20:22)
--- NOTE | 2016-11-25 08:50 | PCM.PN ---
- General Info Date of Service: 11/25/16 Admission Dx/Problem (Free Text): Admission Diagnosis/Problem Admission Diagnosis/Problem Pneumonia Subjective Update: Patient states that he has been not sleeping well but feels "alot better" and would prefer to be discharged as soon as possible. He is eating and eliminating without difficulty. No chest pain. He states he has been in and out of the hospital before for his sickle cell disease but "nothing serious". He reports no night sweats and has been having bowel movements. He is still requiring 6 L per nasal canula of oxygen and does use oxygen at home. Functional Status: Reports: pain controlled, tolerating diet, ambulating - Review of Systems General: Denies: Fever, Weakness, Fatigue HEENT: Denies: headaches, sinus congestion Pulmonary: Denies: shortness of breath, pleuritic chest pain, hemoptysis, wheezing Cardiovascular: Denies: Chest Pain, Palpitations, Edema Gastrointestinal: Denies: Abdominal pain, Hematochezia, Melena Genitourinary: Denies: dysuria Musculoskeletal: Denies: neck pain, leg pain Skin: Denies: diaphoresis Neurological: Denies: Confusion, Dizziness, Headache Psychiatric: Denies: confusion, depression - Patient Data Vitals - most recent: Last Vital Signs Temp 37.3 C 11/25/16 04:00 Pulse 103 H 11/25/16 07:00 Resp 28 H 11/25/16 07:00 BP 105/70 11/25/16 07:00 Pulse Ox 96 11/25/16 07:00 Weight - most recent: 64.9 kg I&O - last 24 hours: Intake & Output 11/24/16 11/25/16 11/25/16 22:59 06:59 14:59 Intake Total 1140 1550 1250 Output Total 1770 1350 Balance -557 273 9021 Lab Results last 24 hrs: Laboratory Results - last 24 hr 11/24/16 11/24/16 11/25/16 Range/Units 04:43 22:30 05:08 WBC 21.37 H 14.68 H (4.0-11.0) K/uL RBC 4.42 L 4.30 L (4.50-5.90) M/uL Hgb 12.2 L 11.8 L (13.0-17.0) g/dL Hct 33.9 L 33.0 L (38.0-50.0) % MCV 76.7 L 76.7 L (80.0-98.0) fL MCH 27.6 27.4 (27.0-32.0) pg MCHC 36.0 35.8 (31.0-37.0) g/dL RDW Std Deviation 60.3 58.9 (28.0-62.0) fl RDW Coeff of Mckay 22 H 21 H (11.0-15.0) % Plt Count 296 268 (150-400) K/uL MPV 10.30 9.50 (7.40-12.00) fL Add Manual Diff YES YES Neutrophils % (Manual) 67 60 (48.0-80.0) % Band Neutrophils % 2 4 % Lymphocytes % (Manual) 20 18 (16.0-40.0) % Monocytes % (Manual) 9 11 (0.0-15.0) % Eosinophils % (Manual) 1 7 (0.0-7.0) % Nucleated RBC % 2.9 3.5 /100WBC Absolute Seg Neuts 14.3 8.8 Band Neutrophils # 0.4 0.6 Lymphocytes # (Manual) 4.3 2.6 Monocytes # (Manual) 1.9 1.6 Eosinophils # (Manual) 0.2 1.0 Nucleated RBCs 6 % Nucleated RBCs # 0 0 K/uL Pathologist Review Not Reportable Sodium (136-146) mmol/L Potassium (3.5-5.1) mmol/L Chloride (98-110) mmol/L Carbon Dioxide (21-31) mmol/L BUN (6.0-23.0) mg/dL Creatinine (0.6-1.5) mg/dL Est Cr Clr Drug Dosing mL/min Estimated GFR (MDRD) ml/min Glucose (60-110) mg/dL Calcium (8.8-10.8) mg/dL Total Bilirubin (0.1-1.5) mg/dL AST (5-40) IU/L ALT (8-54) IU/L Alkaline Phosphatase (40-150) Total Protein (6.0-8.0) g/dL Albumin (3.5-5.0) g/dL Globulin (2.0-3.5) g/dL Albumin/Globulin Ratio (1.3-2.8) Vancomycin Trough 5.2 (5-15) ug/mL 11/25/16 Range/Units 05:08 WBC (4.0-11.0) K/uL RBC (4.50-5.90) M/uL Hgb (13.0-17.0) g/dL Hct (38.0-50.0) % MCV (80.0-98.0) fL MCH (27.0-32.0) pg MCHC (31.0-37.0) g/dL RDW Std Deviation (28.0-62.0) fl RDW Coeff of Mckay (11.0-15.0) % Plt Count (150-400) K/uL MPV (7.40-12.00) fL Add Manual Diff Neutrophils % (Manual) (48.0-80.0) % Band Neutrophils % % Lymphocytes % (Manual) (16.0-40.0) % Monocytes % (Manual) (0.0-15.0) % Eosinophils % (Manual) (0.0-7.0) % Nucleated RBC % /100WBC Absolute Seg Neuts Band Neutrophils # Lymphocytes # (Manual) Monocytes # (Manual) Eosinophils # (Manual) Nucleated RBCs % Nucleated RBCs # K/uL Pathologist Review Sodium 140 (136-146) mmol/L Potassium 4.0 (3.5-5.1) mmol/L Chloride 110 (98-110) mmol/L Carbon Dioxide 22 (21-31) mmol/L BUN 4 L (6.0-23.0) mg/dL Creatinine 1.2 (0.6-1.5) mg/dL Est Cr Clr Drug Dosing 72.50 mL/min Estimated GFR (MDRD) > 60.0 ml/min Glucose 113 H (60-110) mg/dL Calcium 8.2 L (8.8-10.8) mg/dL Total Bilirubin 4.1 H (0.1-1.5) mg/dL AST 22 (5-40) IU/L ALT 25 (8-54) IU/L Alkaline Phosphatase 61 (40-150) Total Protein 6.2 (6.0-8.0) g/dL Albumin 3.2 L (3.5-5.0) g/dL Globulin 3.0 (2.0-3.5) g/dL Albumin/Globulin Ratio 1.1 L (1.3-2.8) Vancomycin Trough (5-15) ug/mL Moises Results last 24 hrs: Microbiology 11/23/16 11:15 Aerobic Blood Culture - Preliminary Blood NO GROWTH AFTER 1 DAY Anaerobic Blood Culture - Preliminary NO GROWTH AFTER 1 DAY 11/23/16 11:02 Aerobic Blood Culture - Preliminary Blood NO GROWTH AFTER 1 DAY Anaerobic Blood Culture - Preliminary NO GROWTH AFTER 1 DAY 11/23/16 00:15 Urine Culture - Final Urine, Clean Catch No Growth Med Orders - Current: Current Medications Acetaminophen (Tylenol) 650 mg PO Q4H PRN PRN Reason: Pain (Mild 1-3)/fever Last Admin: 11/24/16 09:26 Dose: 650 mg Albuterol/Ipratropium (Duoneb 3.0-0.5 Mg/3 Ml) 3 ml NEB Q4HRRT PRN PRN Reason: Wheezing Bacitracin (Bacitracin Oint 1 Gm) 1 dose TOP TID [facility] Last Admin: 11/25/16 06:37 Dose: 1 dose Benzonatate (Tessalon Perles) 100 mg PO TID PRN PRN Reason: Cough Last Admin: 11/23/16 23:16 Dose: 100 mg Enoxaparin Sodium (Lovenox) 40 mg SUBCUT Q24H [facility] Last Admin: 11/24/16 10:56 Dose: Not Given Dextrose/Sodium Chloride (Dextrose 5%-1/2 Ns) 1,000 mls @ 150 mls/hr IV ASDIRECTED [facility] Last Admin: 11/25/16 08:33 Dose: 150 mls/hr Levofloxacin/Dextrose 750 mg/ (Premix) 150 mls @ 100 mls/hr IV Q24H [facility] Last Admin: 11/24/16 16:03 Dose: 100 mls/hr Piperacillin Sod/Tazobactam (Sod 4.5 gm/ Sodium Chloride) 100 mls @ 100 mls/hr IV Q6H [facility] Last Admin: 11/25/16 03:26 Dose: 100 mls/hr Vancomycin HCl 1 gm/ Sodium (Chloride) 250 mls @ 250 mls/hr IV Q8H [facility] Last Admin: 11/25/16 06:38 Dose: 250 mls/hr Ondansetron HCl (Zofran) 4 mg IVPUSH Q4H PRN PRN Reason: Nausea Oseltamivir Phosphate (Tamiflu) 75 mg PO BID [facility] Last Admin: 11/24/16 20:22 Dose: 75 mg Oxycodone HCl (Oxycodone) 5 mg PO Q4H PRN PRN Reason: Pain Last Admin: 11/24/16 20:22 Dose: 5 mg Sodium Chloride (Saline Flush) 10 ml FLUSH ASDIRECTED PRN PRN Reason: Keep Vein Open Last Admin: 11/22/16 14:16 Dose: 10 ml Sodium Chloride (Saline Flush) 2.5 ml FLUSH ASDIRECTED PRN PRN Reason: Keep Vein Open Last Admin: 11/22/16 14:16 Dose: 2.5 ml Vancomycin HCl (Pharmacy To Dose - Vancomycin) 1 dose .XX ASDIRECTED FRANNY Discontinued Medications Albuterol/Ipratropium (Duoneb 3.0-0.5 Mg/3 Ml) 3 ml NEB ONETIME ONE Stop: 11/22/16 13:59 Last Admin: 11/22/16 14:07 Dose: 3 ml Albuterol/Ipratropium (Duoneb 3.0-0.5 Mg/3 Ml) Confirm Administered Dose 3 ml .ROUTE .STK-MED ONE Stop: 11/23/16 09:04 Last Admin: 11/23/16 09:09 Dose: Not Given Heparin Sodium (Porcine) (Heparin Sodium) 5,000 units SUBCUT Q8H [facility] Last Admin: 11/24/16 09:27 Dose: Not Given Sodium Chloride (Normal Saline) 1,000 mls @ 999 mls/hr IV .Bolus ONE Stop: 11/22/16 14:56 Last Admin: 11/22/16 14:16 Dose: 999 mls/hr Levofloxacin/Dextrose 500 mg/ (Premix) 100 mls @ 100 mls/hr IV ONETIME ONE Stop: 11/22/16 16:31 Last Admin: 11/22/16 15:43 Dose: 100 mls/hr Piperacillin Sod/Tazobactam (Sod 4.5 gm/ Sodium Chloride) 100 mls @ 100 mls/hr IV Q8H [facility] Last Admin: 11/23/16 09:22 Dose: 100 mls/hr Vancomycin HCl 1 gm/ Sodium (Chloride) 250 mls @ 250 mls/hr IV Q12H [facility] Last Admin: 11/24/16 23:44 Dose: 250 mls/hr Ibuprofen (Motrin) 600 mg PO ONETIME ONE Stop: 11/22/16 14:19 Last Admin: 11/22/16 14:24 Dose: 600 mg Iopamidol (Isovue Multipack-370 (76%)) 50 ml IVPUSH ONETIME STA Stop: 11/23/16 09:22 Last Admin: 11/23/16 09:22 Dose: 50 ml Morphine Sulfate (Morphine) 2 mg IVPUSH Q2H PRN PRN Reason: Pain (severe 7-10) Stop: 11/23/16 16:51 - Exam Quality Assessment: supplemental oxygen General: alert, oriented, cooperative, no acute distress HEENT: Pupils equal, Pupils reactive, EOMI, Mucous membr. moist/pink Neck: supple Lungs: Normal respiratory effort, Rales (bibasilar) Cardiovascular: Regular Rate, Regular Rhythm, No Murmurs Abdomen: bowel sounds present, soft, no tenderness, no distension Back Exam: normal inspection Extremities: no edema, normal pulses, no tenderness/swelling Peripheral Pulses: 2+: radial (L), radial (R), posterior tibial (L), posterior tibial (R), dorsalis pedis (L), dorsalis pedis (R) Skin: warm, dry, intact Neurological: no new focal deficit Psy/Mental Status: alert, normal affect, normal mood - Problem List & Annotations (1) Pneumonia SNOMED Code(s): 955575529 Code(s): J18.9 - PNEUMONIA, UNSPECIFIED ORGANISM Status: Acute Priority: High Current Visit: Yes Qualifiers: Pneumonia type: due to unspecified organism Laterality: unspecified laterality Lung location: unspecified part of lung Qualified Code(s): J18.9 - Pneumonia, unspecified organism (2) Acute chest syndrome SNOMED Code(s): 528738508, 202464276 Code(s): D57.01 - HB-SS DISEASE WITH ACUTE CHEST SYNDROME Status: Acute Priority: High Current Visit: No - Problem List Review Problem List Initiated/Reviewed/Updated: Yes - Plan Plan:: 36 yo male admitted for pneumonia and possible acute chest syndrome with history sickle cell disease. Pneumonia: WBC continue to improve on Levaquin, Vanc, and Zosyn Day 3 down from 21 to 14.6 today. Will continue abx. Patient still requiring supplemental oxygen however and has continued bibasilar rales. Patient is wishing to be discharged but given continued leukocytosis and oxygen requirement I suggested he should stay. Patient is in agreement. If WBC's normalize and not requiring oxygen may consider d/c tomorrow. VTE proph: Patient continues to refuse prophlaxis even given his high risk of developing DVT. Dispo: 1-2 days.
[2016-11-25] MEDS: Oseltamivir 75 MG Cap PO SCH ×2 (09:06→20:26)
[2016-11-25] MEDS: Enoxaparin 40 MG/0.4 ML Syringe SUBCUT SCH (10:30)
--- NOTE | 2016-11-25 15:08 | CT ---
EXAM DATE: 11/22/16 PATIENT'S AGE: 36 Patient: AKIL [facility] Facility: [place], [place] Site . Site : 1980 Study: CT Chest Angio [id number]/13/2017 10:35:05 AM Ordering Physician: Adrian Zamora Final Report: INDICATION: Shortness of breath; sickle cell disease; rule out pulmonary thromboembolism. Comparison :chest radiograph November 21, and 2016; chest radiograph July 01, 2016. Technique: CT chest with intravenous contrast; coronal and sagittal reformats. Findings: No CT evidence of acute or chronic pulmonary thromboembolism. acute bilateral perihilar infiltration; rule out acute pulmonary edema. Normal-sized cardiac silhouette. No evidence of pleural effusion. Increased density within the vertebral bodies as well as skeleton secondary to patient`s sickle cell disease. 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 Impression: 1. No CT evidence of pulmonary thromboembolism. 2. Extensive perihilar consolidation bilateral; rule out acute pulmonary edema. 3. Skeletal changes compatible with sickle cell disease. Dictated by Michale Gtz MD @ Nov 23 2016 10:41AM (Electronic Signature) Report Signed by Proxy and Original Signed Document filed in the Medical Record. [facility]
[2016-11-25] MEDS: Levofloxacin/Dextrose 5%-Water 750 MG in Premix Bag 1 BAG IV SCH (17:27)
[2016-11-25] MEDS: oxyCODONE 5 MG Tab PO PRN (23:11)
[2016-11-26] MEDS: Piperacillin/Tazobactam 4.5 GM in Sodium Chloride 0.9% 100 ML IV SCH ×2 (03:02→08:05)
[2016-11-26 05:46] LABS: CHLORIDE,CL 108 mmol/L (98-110); SODIUM,NA 139 mmol/L (136-146)
[2016-11-26] MEDS: Bacitracin Oint 1 GM U/D Packet TOP SCH (06:01)
[2016-11-26] MEDS: Dextrose 5%-0.45% NaCl 1,000 ML IV SCH (06:03)
[2016-11-26] MEDS: Oseltamivir 75 MG Cap PO SCH (08:05)
[2016-11-26] MEDS: Enoxaparin 40 MG/0.4 ML Syringe SUBCUT SCH (10:37)
[2016-11-26 13:18] VITALS: BP 122/71
--- NOTE | 2016-11-28 15:19 | PCM.DCSUM1 ---
Discharge Summary - Hospital Course HPI Initial Comments: 36 yo male admitted on 11/22/16 for suspected pneumonia vs mild acute chest syndrome with pmh of sickle cell disease. - Discharge Data Discharge Date: 11/26/16 Discharge Disposition: Home, Self-Care 01 Condition: Good - Discharge Diagnosis/Problem(s) (1) Pneumonia SNOMED Code(s): 768729233 ICD Code: J18.9 - PNEUMONIA, UNSPECIFIED ORGANISM Status: Acute Priority : High Qualifiers: Pneumonia type: due to unspecified organism Laterality: unspecified laterality Lung location: unspecified part of lung Qualified Code(s): J18.9 - Pneumonia, unspecified organism (2) Acute chest syndrome SNOMED Code(s): 047890335, 652678871 ICD Code: D57.01 - HB-SS DISEASE WITH ACUTE CHEST SYNDROME Status: Acute Priority: High - Patient Instructions Diet: Regular Diet as Tolerated Activity: As Tolerated Driving: Do Not Drive Showering/Bathing: May Shower Notify Provider of: Fever, Increased Pain, Swelling and Redness, Nausea and/or Vomiting - Discharge Plan Prescriptions/Med Rec: Amoxicillin/Clavulanate K [Augmentin 500 MG\\125 MG] 1 tab PO Q12HR #20 tablet Bacitracin [Bacitracin Oint 1 GM] 1 dose TOP TID 14 Days Benzonatate [Tessalon Perles] 100 mg PO TID PRN #12 cap PRN Reason: Cough Home Medications: Home Meds Amoxicillin/Clavulanate K [Augmentin 500 MG\\125 MG] 1 tab PO Q12HR #20 tablet [Rx] Bacitracin [Bacitracin Oint 1 GM] 1 dose TOP TID 14 Days 11/26/16 [Rx] Benzonatate [Tessalon Perles] 100 mg PO TID PRN #12 cap 11/26/16 [Rx] Patient Handouts: Amoxicillin; Clavulanic Acid tablets, Bacitracin skin ointment, Benzonatate capsules, Community-Acquired Pneumonia, Adult, Easy-to- Read Forms: ED Department Discharge, ED Department Discharge - Discharge Summary/Plan Comment DC Time >30 min.: Yes Discharge Summary/Plan Comment: 36 yo male admitted on 11/22/16 for suspected pneumonia vs mild acute chest syndrome with pmh of sickle cell disease. Patient reported that he slipped and fell two days prior to admission . He was seen in the ED the day before for this as he was not feeling well. He was noted to have a fever and WBC of 19,000. CT head and CXR were unremarkable. He was given Rocephin and discharged home. He presents again the following day reporting fevers and chills, He had a cough with shortness of breath but denied any chest pain. He denied any myalgias or joint pain which he gets with his sickle cell crisis. He reported recent travel to [facility] and [place]. In the ED, his WBC increased to 24,000 and repeat CXR showed right lung infiltrate. He was given Levaquin and one liter bolus on NS. He was admitted and started on treatment for community acquired pneumonia vs mild acute chest syndrome. On second day of admission patient was transferred to ICU secondary to worsening hypoxia requiring a nonrebreather, persistent fevers and worsening leukocytosis. CT chest was negative for PE but showed bilateral perihilar consolidation. Suspect acute bacterial pneumonia vs acute chest syndrome. Levaquin was conitinued and antibiotic coverage was expanded to vancomycin, zosyn, and tamiflu. For the possible acute chest syndrome IVFs were continue with D5 1/2NS. Echocardiogram was also ordered. On broad spectrum abx leukocytosis began to improve. Patient refused pharmacological prophylaxis for DVT even though he was at high risk. Patient adamantly wanted to be discharged on 11/25/16 but then agreed to stay at least one more day secondary to continued mild leukocytosis and mild oxygen continued requirements. On 11/26/16, the patient's leukocytosis had resolved and the patient was satting 91% on room air. He was discharged with Augmentin for an additional 10 days, benzoate for cough, and a PCP followup. Patient was advised that if he had any return of symptoms he was to return to the emergency department immediately. Patient was discharged in good condition. - General Info Date of Service: 11/26/16 Admission Dx/Problem (Free Text: Admission Diagnosis/Problem Admission Diagnosis/Problem Pneumonia Subjective Update: Patient states that he has been not sleeping well but feels "alot better" and would prefer to be discharged as soon as possible. He is eating and eliminating without difficulty. No chest pain. He states he has been in and out of the hospital before for his sickle cell disease but "nothing serious". He reports no night sweats and has been having bowel movements. He is still requiring 6 L per nasal canula of oxygen and does use oxygen at home. - Review of Systems General: Reports: No Symptoms HEENT: Reports: no symptoms Pulmonary: Reports: no symptoms Cardiovascular: Reports: No Symptoms Gastrointestinal: Reports: No symptoms Genitourinary: Reports: no symptoms Musculoskeletal: Reports: no symptoms Skin: Reports: no symptoms Neurological: Reports: No Symptoms Psychiatric: Reports: no symptoms - Patient Data Vitals - Most Recent: Last Vital Signs Temp 36.8 C 11/26/16 12:00 Pulse 91 11/26/16 12:00 Resp 16 11/26/16 12:00 BP 122/71 11/26/16 12:00 Pulse Ox 91 L 11/26/16 12:00 Weight - Most Recent: 64.9 kg MARIE Results - Last 24 hrs: Microbiology 11/23/16 11:15 Aerobic Blood Culture - Final Blood NO GROWTH AFTER 5 DAYS Anaerobic Blood Culture - Final NO GROWTH AFTER 5 DAYS 11/23/16 11:02 Aerobic Blood Culture - Final Blood NO GROWTH AFTER 5 DAYS Anaerobic Blood Culture - Final NO GROWTH AFTER 5 DAYS Med Orders - Current: Current Medications Discontinued Medications Acetaminophen (Tylenol) 650 mg PO Q4H PRN PRN Reason: Pain (Mild 1-3)/fever Last Admin: 11/24/16 09:26 Dose: 650 mg Albuterol/Ipratropium (Duoneb 3.0-0.5 Mg/3 Ml) 3 ml NEB ONETIME ONE Stop: 11/22/16 13:59 Last Admin: 11/22/16 14:07 Dose: 3 ml Albuterol/Ipratropium (Duoneb 3.0-0.5 Mg/3 Ml) 3 ml NEB Q4HRRT PRN PRN Reason: Wheezing Albuterol/Ipratropium (Duoneb 3.0-0.5 Mg/3 Ml) Confirm Administered Dose 3 ml .ROUTE .STK-MED ONE Stop: 11/23/16 09:04 Last Admin: 11/23/16 09:09 Dose: Not Given Bacitracin (Bacitracin Oint 1 Gm) 1 dose TOP TID FRANNY Last Admin: 11/26/16 06:01 Dose: 1 dose Benzonatate (Tessalon Perles) 100 mg PO TID PRN PRN Reason: Cough Last Admin: 11/23/16 23:16 Dose: 100 mg Enoxaparin Sodium (Lovenox) 40 mg SUBCUT Q24H [facility] Last Admin: 11/26/16 10:37 Dose: Not Given Heparin Sodium (Porcine) (Heparin Sodium) 5,000 units SUBCUT Q8H [facility] Last Admin: 11/24/16 09:27 Dose: Not Given Sodium Chloride (Normal Saline) 1,000 mls @ 999 mls/hr IV .Bolus ONE Stop: 11/22/16 14:56 Last Admin: 11/22/16 14:16 Dose: 999 mls/hr Levofloxacin/Dextrose 500 mg/ (Premix) 100 mls @ 100 mls/hr IV ONETIME ONE Stop: 11/22/16 16:31 Last Admin: 11/22/16 15:43 Dose: 100 mls/hr Dextrose/Sodium Chloride (Dextrose 5%-1/2 Ns) 1,000 mls @ 150 mls/hr IV ASDIRECTED [facility] Last Admin: 11/26/16 06:03 Dose: 150 mls/hr Levofloxacin/Dextrose 750 mg/ (Premix) 150 mls @ 100 mls/hr IV Q24H [facility] Last Admin: 11/25/16 17:27 Dose: 100 mls/hr Piperacillin Sod/Tazobactam (Sod 4.5 gm/ Sodium Chloride) 100 mls @ 100 mls/hr IV Q8H [facility] Last Admin: 11/23/16 09:22 Dose: 100 mls/hr Vancomycin HCl 1 gm/ Sodium (Chloride) 250 mls @ 250 mls/hr IV Q12H [facility] Last Admin: 11/24/16 23:44 Dose: 250 mls/hr Piperacillin Sod/Tazobactam (Sod 4.5 gm/ Sodium Chloride) 100 mls @ 100 mls/hr IV Q6H [facility] Last Admin: 11/26/16 08:05 Dose: 100 mls/hr Vancomycin HCl 1 gm/ Sodium (Chloride) 250 mls @ 250 mls/hr IV Q8H [facility] Last Admin: 11/26/16 06:45 Dose: 250 mls/hr Ibuprofen (Motrin) 600 mg PO ONETIME ONE Stop: 11/22/16 14:19 Last Admin: 11/22/16 14:24 Dose: 600 mg Iopamidol (Isovue Multipack-370 (76%)) 50 ml IVPUSH ONETIME STA Stop: 11/23/16 09:22 Last Admin: 11/23/16 09:22 Dose: 50 ml Morphine Sulfate (Morphine) 2 mg IVPUSH Q2H PRN PRN Reason: Pain (severe 7-10) Stop: 11/23/16 16:51 Ondansetron HCl (Zofran) 4 mg IVPUSH Q4H PRN PRN Reason: Nausea Oseltamivir Phosphate (Tamiflu) 75 mg PO BID [facility] Last Admin: 11/26/16 08:05 Dose: 75 mg Oxycodone HCl (Oxycodone) 5 mg PO Q4H PRN PRN Reason: Pain Last Admin: 11/25/16 23:11 Dose: 5 mg Sodium Chloride (Saline Flush) 10 ml FLUSH ASDIRECTED PRN PRN Reason: Keep Vein Open Last Admin: 11/22/16 14:16 Dose: 10 ml Sodium Chloride (Saline Flush) 2.5 ml FLUSH ASDIRECTED PRN PRN Reason: Keep Vein Open Last Admin: 11/22/16 14:16 Dose: 2.5 ml Vancomycin HCl (Pharmacy To Dose - Vancomycin) 1 dose .XX ASDIRECTED FRANNY - Exam Quality Assessment: Reports: DVT prophylaxis General: Reports: alert, oriented, cooperative, no acute distress HEENT: Reports: Pupils equal, Pupils reactive, EOMI, Mucous membr. moist/pink Neck: Reports: supple Lungs: Reports: Clear to auscultation, Normal respiratory effort Cardiovascular: Reports: Regular Rate, Regular Rhythm Abdomen: Reports: bowel sounds present, soft, no tenderness, no distension (Male) Exam: No hernia, Normal inspection, Normal prostate, Circumcised Back Exam: Reports: normal inspection Extremities: Reports: no edema, normal pulses Skin: Reports: warm, dry, intact Wound/Incisions: Reports: healing well Neurological: Reports: no new focal deficit Psy/Mental Status: Reports: alert, normal affect, normal mood *Q Meaningful Use (DIS) - VTE *Q VTE Criteria *Q: - Stroke *Q Stroke Criteria *Q: - AMI *Q AMI Criteria *Q:
--- NOTE | 2016-12-01 19:19 | ECHO ---
The echocardiogram report can be seen in this patient's EMR in the Reports section. GWEN
== END 2016-11-26 12:25 | disposition home or self-care (01) | DRG 193 ==
LOC: MW.ED 13:55 → MW.MS 15:35 → MW.ED 15:48 → MW.ICU 11-23 10:09 → MW.MS 11-25 13:03
PROVIDERS: ADMIT Internal Medicine; ATTEND Internal Medicine
DX: J18.9 Pneumonia, unspecified organism (principal); D57.01 Hb-SS disease with acute chest syndrome; R50.9 Fever, unspecified; D57.1 Sickle-cell disease without crisis; Z87.891 Personal history of nicotine dependence
CPT/HCPCS: 36415; 71010; 71010-26; 71275; 71275-26; 80048; 80053; 80202; 83605; 83690; 85025; 85045; 87040; 87086; 87804; 88104; 93306; 94640; 94664; 96361; 96374; 99285; 99285-25; A9270-GY; G0480; J1644; J1956; J2543; J3370; J7030; J7040; J7042; J7050; Q9967

== ENCOUNTER 2017-02-24 15:24 | Inpatient (IN) | payer OTHER, SELFPAY ==
[2017-02-24] MEDS ORDERED: Diphtheria,Pertussis(Acell),Tetanus Vaccine 0.5 ML Syringe IM ONE (15:45)
[2017-02-24] MEDS: Dextrose 5%-0.45% NaCl 1,000 ML IV SCH (16:55)
[2017-02-24 17:17] LABS: CHLORIDE,CL 108 mmol/L (98-110); SODIUM,NA 140 mmol/L (136-146)
[2017-02-24] MEDS ORDERED: Azithromycin 250 MG Tab PO ONE (19:09)
--- NOTE | 2017-02-24 19:17 | PCM.HP ---
H&P History of Present Illness - General Admit Problem/Dx: Admission Diagnosis/Problem Admission Diagnosis/Problem Syncope - History of Present Illness Initial Comments - Free Text/Narative: 36 yo male with pmh of sickle cell disease who I have admitted twice since last July for acute chest syndrome. He presents with several day history of shortness of breath. He reports chest pain that occurs when he is gasping for breath at home. Shortness of breath only occurs with exertion such as walking up stairs. Yesteday he had an episoded of shortness of breath that caused he to pass out and fall on the floor at home. He was seen in Dr. Khalil's clinic who referred him to direct admission. He denies any fevers and his chest pain is not as severe as in past. - Related Data Allergies/Adverse Reactions: Allergies Allergy/AdvReac Type Severity Reaction Status Date / Time No Known Allergies Allergy Verified 02/21/17 06:52 MDT Home Medications: Home Meds Albuterol [IJD: Albuterol HFA] 2 puff INH Q6HR PRN #8 gm 02/21/17 [Rx] Hydroxyurea 1,000 mg PO DAILY #60 capsule 02/21/17 [Rx] Levofloxacin [Levaquin] 750 mg PO DAILY #5 tablet 02/21/17 [Rx] Past Medical History HEENT History: Reports: None Cardiovascular History: Reports: None Respiratory History: Reports: Pneumonia, Recurrent Other Respiratory History: SOB with exertion Gastrointestinal History: Reports: None Genitourinary History: Reports: None Musculoskeletal History: Reports: None Neurological History: Reports: Headaches, Chronic Psychiatric History: Reports: None Endocrine/Metabolic History: Reports: None Hematologic History: Reports: Blood Transfusion(s), Sickle Cell Anemia Immunologic History: Reports: None Oncologic (Cancer) History: Reports: None Dermatologic History: Reports: Eczema Other Dermatologic History: Experiences only when home [facility] - Infectious Disease History Infectious Disease History: Reports: None - Past Surgical History Head Surgeries/Procedures: Reports: None HEENT Surgical History: Reports: None Cardiovascular Surgical History: Reports: None GI Surgical History: Reports: None, Hernia, Inguinal Social & Family History - Family History Family Medical History: Noncontributory HEENT: Reports: None Hematologic: Reports: Sickle Cell Anemia - Tobacco Use Smoking Status *Q: Never Smoker Years of Tobacco use: 10 Packs/Tins Daily: 0.5 Used Tobacco, but Quit: Yes Month Tobacco Last Used: 2013 Second Hand Smoke Exposure: No - Caffeine Use Caffeine Use: Reports: None - Alcohol Use Days Per Week of Alcohol Use: 4 Number of Drinks Per Day: 1 Total Drinks Per Week: 4 - Recreational Drug Use Recreational Drug Use: No H&P Review of Systems - Review of Systems: Review Of Systems: See Below General: Reports: No Symptoms HEENT: Reports: No Symptoms Pulmonary: Reports: No Symptoms Cardiovascular: Reports: No Symptoms Gastrointestinal: Reports: No Symptoms Genitourinary: Reports: No Symptoms Musculoskeletal: Reports: No Symptoms Skin: Reports: No Symptoms Psychiatric: Reports: No Symptoms Neurological: Reports: No Symptoms Hematologic/Lymphatic: Reports: No Symptoms Immunologic: Reports: No Symptoms Exam - Exam Exam: See Below - Vital Signs Vital Signs: Last Vital Signs Temp 36.9 C 02/24/17 15:26 Pulse 108 H 02/24/17 15:26 Resp 16 02/24/17 15:26 BP 115/73 02/24/17 15:26 Pulse Ox 84 L 02/24/17 15:26 Weight: 61.008 kg - Exam General: Alert, Oriented, 4 HEENT: Mucosa Moist & [place] Lungs: Clear to Auscultation, Normal Respiratory Effort Cardiovascular: Regular Rate, Regular Rhythm Abdomen: Normal Bowel Sounds, Soft. No: Tenderness Extremities: Normal Inspection Skin: Warm, Dry, Intact Psychiatric: Alert, Normal Affect, Normal Mood - Patient Data Lab Results Last 24 hrs: Laboratory Results - last 24 hr 02/24/17 02/24/17 02/24/17 Range/Units 16:22 16:22 16:22 WBC 16.73 H (4.0-11.0) K/uL RBC 4.56 (4.50-5.90) M/uL Hgb 13.8 (13.0-17.0) g/dL Hct 37.1 L (38.0-50.0) % MCV 81.4 (80.0-98.0) fL MCH 30.3 (27.0-32.0) pg MCHC 37.2 H (31.0-37.0) g/dL RDW Std Deviation 58.0 (28.0-62.0) fl RDW Coeff of Mckay 21 H (11.0-15.0) % Plt Count 315 (150-400) K/uL MPV 9.80 (7.40-12.00) fL Nucleated RBC % 16.0 /100WBC Nucleated RBCs # 2 K/uL Smear Path Review SENT TO PATHOLOGY Sodium 140 (136-146) mmol/L Potassium 4.1 (3.5-5.1) mmol/L Chloride 108 (98-110) mmol/L Carbon Dioxide 19 L (21-31) mmol/L BUN 12 (6.0-23.0) mg/dL Creatinine 1.3 (0.6-1.5) mg/dL Est Cr Clr Drug Dosing 66.48 mL/min Estimated GFR (MDRD) > 60.0 ml/min Glucose 101 (60-110) mg/dL Calcium 9.1 (8.8-10.8) mg/dL Total Bilirubin 6.8 H (0.1-1.5) mg/dL AST 32 (5-40) IU/L ALT 27 (8-54) IU/L Alkaline Phosphatase 80 (40-150) Troponin I < 0.10 (0.0-0.29) NG/ML Total Protein 8.3 H (6.0-8.0) g/dL Albumin 4.8 (3.5-5.0) g/dL Globulin 3.5 (2.0-3.5) g/dL Albumin/Globulin Ratio 1.4 (1.3-2.8) Result Diagrams: 02/25/17 04:30 02/25/17 04:30 Moises Results Last 24 hrs: Microbiology 02/24/17 16:35 Anaerobic Blood Culture - Final Blood - Venous - Lab Draw *Q Meaningful Use (ADM) - VTE *Q VTE Criteria *Q: - Stroke *Q Stroke Criteria *Q: - AMI *Q AMI Criteria *Q: Problem List Initiated/Reviewed/Updated: Yes Orders Last 24hrs: Active Orders 24 hr Category Date Time Status Patient Status [ADT] Routine ADT 02/24/17 19:04 Ordered Antiembolic Devices [RC] PER UNIT ROUTINE Care 02/24/17 19:06 Ordered EKG Documentation Completion [RC] DAILY Care 02/24/17 15:49 Active Intake and Output [RC] QSHIFT Care 02/24/17 19:05 Ordered Oxygen Therapy [RC] PRN Care 02/24/17 19:04 Ordered Telemetry Monitoring [Cardiac Monitoring] [RC] . Care 02/24/17 16:11 Active DIRECTED Up ad Ananya [RC] ASDIRECTED Care 02/24/17 19:03 Ordered VTE/DVT Education [RC] PER UNIT ROUTINE Care 02/24/17 19:04 Ordered Vaccines to be Administered [RC] PER UNIT ROUTINE Care 02/24/17 15:45 Active Vital Signs [RC] Q4H Care 02/24/17 19:04 Ordered Regular Diet [DIET] Diet 02/24/17 Dinner Active Chest 2V [CR] Routine Exams 02/24/17 15:48 Taken Chest PE [Ang Chest] [CT] Routine Exams 02/24/17 18:55 Ordered CBC WITH AUTO DIFF [HEME] AM Lab 02/25/17 05:11 Ordered CBC WITH AUTO DIFF [HEME] AM Lab 02/26/17 05:11 Ordered COMPREHENSIVE METABOLIC PN,CMP [CHEM] AM Lab 02/25/17 05:11 Ordered COMPREHENSIVE METABOLIC PN,CMP [CHEM] AM Lab 02/26/17 05:11 Ordered CULTURE BLOOD [BC] Stat Lab 02/24/17 16:22 Received CULTURE BLOOD [BC] Stat Lab 02/24/17 16:35 Results CULTURE SPUTUM + SMEAR [RM] Routine Lab 02/24/17 15:48 Uncollected TROPONIN I [CHEM] Q6H Lab 02/24/17 21:49 Ordered TROPONIN I [CHEM] Q6H Lab 02/25/17 03:49 Ordered Azithromycin [Zithromax] Med 02/24/17 19:09 Once 500 mg PO Q24H ONE Cefotaxime [Claforan] 1,000 mg Med 02/24/17 22:00 Ordered Sodium Chloride 0.9% [Normal Saline] 50 ml IV Q8HR Dextrose 5%-0.45% NaCl [Dextrose 5%-1/2 NS] 1,000 ml Med 02/24/17 16:00 Active IV ASDIRECTED Enoxaparin [Lovenox] Med 02/25/17 09:00 Ordered 40 mg SUBCUT DAILY Morphine Med 02/24/17 15:49 Active 2 mg IVPUSH Q2H PRN Blood Culture x2 Reflex Set [OM.PC] Stat Oth 02/24/17 15:48 Ordered Sequential Compression Device [OM.PC] Per Unit Routine Oth 02/24/17 19:05 Ordered Resuscitation Status Routine Resus Stat 02/24/17 19:03 Ordered Medication Orders Azithromycin (Zithromax) 500 mg PO Q24H ONE Stop: 02/24/17 19:10 Enoxaparin Sodium (Lovenox) 40 mg SUBCUT DAILY [facility] Dextrose/Sodium Chloride (Dextrose 5%-1/2 Ns) 1,000 mls @ 125 mls/hr IV ASDIRECTED [facility] Last Admin: 02/24/17 16:55 Dose: 125 mls/hr Cefotaxime Sodium 1,000 mg/ (Sodium Chloride) 50 mls @ 1 drops/hr IV Q8HR [facility] Morphine Sulfate (Morphine) 2 mg IVPUSH Q2H PRN PRN Reason: Pain Assessment/Plan Comment:: 36 yo male who presents with shortness of breath and syncope. I suspect acute chest syndrome but will rule out PE with CT angio. Will treat with IV fluids D51/2NS. Will treat empirically with cefotaxime and azithromycin.
[2017-02-24] MEDS ORDERED: Iopamidol 755 MG/ML 500 ML Multipack Bottle IVPUSH STA (19:19)
[2017-02-24] MEDS: Morphine 2 MG/ML Syringe IVPUSH PRN ×2 (20:12→23:54)
[2017-02-24] MEDS: Cefotaxime 1,000 MG in Sodium Chloride 0.9% 50 ML IV SCH (21:41)
[2017-02-24] MEDS ORDERED: Heparin Sodium/D5W 25,000 UNITS/500 ML BAG IV SCH (21:45)
[2017-02-24] MEDS ORDERED: Cefotaxime 1,000 MG in Sodium Chloride 0.9% 50 ML IV SCH (22:00)
[2017-02-24] MEDS ORDERED: Heparin Sodium 5,000 Units/ML Vial IV ONE (22:30)
[2017-02-24] MEDS: Heparin Sodium 25,000 UNITS in Dextrose 5% in Water 500 ML IV SCH ×2 (22:50)
[2017-02-25] MEDS: Dextrose 5%-0.45% NaCl 1,000 ML IV SCH ×3 (02:33→23:29)
[2017-02-25] MEDS: Morphine 2 MG/ML Syringe IVPUSH PRN ×3 (02:38→14:59)
[2017-02-25 05:22] LABS: CHLORIDE,CL 110 mmol/L (98-110); SODIUM,NA 139 mmol/L (136-146)
[2017-02-25] MEDS: Cefotaxime 1,000 MG in Sodium Chloride 0.9% 50 ML IV SCH ×3 (06:31→21:09)
[2017-02-25] MEDS ORDERED: Enoxaparin 40 MG/0.4 ML Syringe SUBCUT SCH (09:00)
--- NOTE | 2017-02-25 09:52 | CR ---
EXAM DATE: 02/24/17 PATIENT'S AGE: 36 Patient: [facility] Facility: [place], [place] Site . Site : 1980 Study: XRay Chest [id number]/14/2017 5:37:47 PM Ordering Physician: Adrian Zamora Final Report: INDICATION: acute chest syndrome, low o2 sats on room air TECHNIQUE: Chest 2 views. COMPARISON: 02/17/17 FINDINGS: Cardiovascular and mediastinum: Heart size and vasculature are normal in caliber and appearance. Mediastinum is within normal limits. Lungs and pleural spaces: Lungs are clear. No sign of infiltrate or mass. No sign of pleural effusion. No pneumothorax. Bones and soft tissues: No significant findings. IMPRESSION: Unremarkable chest. Dictated by: Aldair Light MD @ 02/24/2017 17:58:44 (Electronic Signature) Report Signed by Proxy. [facility]
--- NOTE | 2017-02-25 10:00 | CT ---
EXAM DATE: 02/24/17 PATIENT'S AGE: 36 Patient: [facility] Facility: [place], [place] Site . Site : 1980 Study: CT Chest Angio [id number]/14/2017 8:31:55 PM Ordering Physician: Adrian Zamora Final Report: INDICATION: sob Dictated by: Homero Ortega MD @ 02/24/2017 21:08:40 ----- ADDENDUM ----- COMPARISON: 11/23/2016. FINDINGS/IMPRESSION: : A small filling defect in a right upper lobe subsegmental pulmonary artery on images [id number] consistent with a small peripheral pulmonary embolus. No large, central pulmonary embolus seen. Decreased opacification in several lower lobe pulmonary veins concerning for pulmonary venous thrombosis, although this could also be related to contrast mixing. Normal cardiac size and aortic caliber. No abnormally enlarged mediastinal or hilar lymph nodes seen. Bilateral ill-defined perihilar and central ground-glass opacities suggestive of a nonspecific infectious or inflammatory pneumonitis or evolving pulmonary edema. A 1.4 x 0.9 centimeter right lower lobe density on image 378, in the region of a small ill-defined ground-glass opacity in the prior study. A short- term followup study is recommended to exclude neoplasm. Smaller focal peribronchovascular opacities in the lower lobes on image 265 could represent small residual infiltrates from the prior study. No pleural or pericardial effusions. A small calcified spleen again seen. Osseous findings compatible with sickle cell disease again noted. The findings were discussed with Dr. Campbell on 02/24/2017 at 8:45 p.m.. Dictated by Homero Ortega MD @ Feb 24 2017 10:21PM (Electronic Signature) Report Signed by Proxy. [facility]
[2017-02-25] MEDS ORDERED: Cefotaxime 1,000 MG in Sodium Chloride 0.9% 50 ML IV SCH (10:16)
--- NOTE | 2017-02-25 12:19 | PCM.PN ---
- Review of Systems Systems Review Comment:: no shortness of breath, but has not been exerting himself. - Patient Data Vitals - most recent: Last Vital Signs Temp 37.2 C 02/25/17 11:38 Pulse 88 02/25/17 11:38 Resp 20 02/25/17 11:38 BP 112/72 02/25/17 11:38 Pulse Ox 95 02/25/17 11:38 Weight - most recent: 61.008 kg I&O - last 24 hours: Intake & Output 02/24/17 02/25/17 02/25/17 22:59 06:59 14:59 Intake Total 50 2650 Output Total 750 Balance 50 1900 Lab Results last 24 hrs: Laboratory Results - last 24 hr 02/24/17 02/24/17 02/24/17 Range/Units 16:22 16:22 16:22 WBC 16.73 H (4.0-11.0) K/uL RBC 4.56 (4.50-5.90) M/uL Hgb 13.8 (13.0-17.0) g/dL Hct 37.1 L (38.0-50.0) % MCV 81.4 (80.0-98.0) fL MCH 30.3 (27.0-32.0) pg MCHC 37.2 H (31.0-37.0) g/dL RDW Std Deviation 58.0 (28.0-62.0) fl RDW Coeff of Mckay 21 H (11.0-15.0) % Plt Count 315 (150-400) K/uL MPV 9.80 (7.40-12.00) fL Add Manual Diff Neutrophils % (Manual) (48.0-80.0) % Band Neutrophils % % Lymphocytes % (Manual) (16.0-40.0) % Monocytes % (Manual) (0.0-15.0) % Eosinophils % (Manual) (0.0-7.0) % Basophils % (Manual) (0.0-1.5) % Nucleated RBC % 16.0 /100WBC Absolute Seg Neuts Band Neutrophils # Lymphocytes # (Manual) Monocytes # (Manual) Eosinophils # (Manual) Basophils # (Manual) Nucleated RBCs % Nucleated RBCs # 2 K/uL Polychromasia Anisocytosis Target Cells Smear Path Review SENT TO PATHOLOGY APTT (18.6-31.3) SEC Sodium 140 (136-146) mmol/L Potassium 4.1 (3.5-5.1) mmol/L Chloride 108 (98-110) mmol/L Carbon Dioxide 19 L (21-31) mmol/L BUN 12 (6.0-23.0) mg/dL Creatinine 1.3 (0.6-1.5) mg/dL Est Cr Clr Drug Dosing 66.48 mL/min Estimated GFR (MDRD) > 60.0 ml/min Glucose 101 (60-110) mg/dL Calcium 9.1 (8.8-10.8) mg/dL Total Bilirubin 6.8 H (0.1-1.5) mg/dL AST 32 (5-40) IU/L ALT 27 (8-54) IU/L Alkaline Phosphatase 80 (40-150) Troponin I < 0.10 (0.0-0.29) NG/ML Total Protein 8.3 H (6.0-8.0) g/dL Albumin 4.8 (3.5-5.0) g/dL Globulin 3.5 (2.0-3.5) g/dL Albumin/Globulin Ratio 1.4 (1.3-2.8) 02/24/17 02/24/17 02/25/17 Range/Units 21:38 21:38 04:30 WBC (4.0-11.0) K/uL RBC (4.50-5.90) M/uL Hgb (13.0-17.0) g/dL Hct (38.0-50.0) % MCV (80.0-98.0) fL MCH (27.0-32.0) pg MCHC (31.0-37.0) g/dL RDW Std Deviation (28.0-62.0) fl RDW Coeff of Mckay (11.0-15.0) % Plt Count (150-400) K/uL MPV (7.40-12.00) fL Add Manual Diff Neutrophils % (Manual) (48.0-80.0) % Band Neutrophils % % Lymphocytes % (Manual) (16.0-40.0) % Monocytes % (Manual) (0.0-15.0) % Eosinophils % (Manual) (0.0-7.0) % Basophils % (Manual) (0.0-1.5) % Nucleated RBC % /100WBC Absolute Seg Neuts Band Neutrophils # Lymphocytes # (Manual) Monocytes # (Manual) Eosinophils # (Manual) Basophils # (Manual) Nucleated RBCs % Nucleated RBCs # K/uL Polychromasia Anisocytosis Target Cells Smear Path Review APTT 26.1 (18.6-31.3) SEC Sodium (136-146) mmol/L Potassium (3.5-5.1) mmol/L Chloride (98-110) mmol/L Carbon Dioxide (21-31) mmol/L BUN (6.0-23.0) mg/dL Creatinine (0.6-1.5) mg/dL Est Cr Clr Drug Dosing mL/min Estimated GFR (MDRD) ml/min Glucose (60-110) mg/dL Calcium (8.8-10.8) mg/dL Total Bilirubin (0.1-1.5) mg/dL AST (5-40) IU/L ALT (8-54) IU/L Alkaline Phosphatase (40-150) Troponin I < 0.10 < 0.10 (0.0-0.29) NG/ML Total Protein (6.0-8.0) g/dL Albumin (3.5-5.0) g/dL Globulin (2.0-3.5) g/dL Albumin/Globulin Ratio (1.3-2.8) 02/25/17 02/25/17 02/25/17 Range/Units 04:30 04:30 04:30 WBC 17.79 H (4.0-11.0) K/uL RBC 3.55 L (4.50-5.90) M/uL Hgb 10.5 L (13.0-17.0) g/dL Hct 28.8 L (38.0-50.0) % MCV 81.1 (80.0-98.0) fL MCH 29.6 (27.0-32.0) pg MCHC 36.5 (31.0-37.0) g/dL RDW Std Deviation 57.4 (28.0-62.0) fl RDW Coeff of Mckay 20 H (11.0-15.0) % Plt Count 294 (150-400) K/uL MPV 10.00 (7.40-12.00) fL Add Manual Diff YES Neutrophils % (Manual) 40 L (48.0-80.0) % Band Neutrophils % 1 % Lymphocytes % (Manual) 52 H (16.0-40.0) % Monocytes % (Manual) 3 (0.0-15.0) % Eosinophils % (Manual) 3 (0.0-7.0) % Basophils % (Manual) 1 (0.0-1.5) % Nucleated RBC % 14.8 /100WBC Absolute Seg Neuts 7.1 Band Neutrophils # 0.2 Lymphocytes # (Manual) 9.3 Monocytes # (Manual) 0.5 Eosinophils # (Manual) 0.5 Basophils # (Manual) 0 Nucleated RBCs 22 % Nucleated RBCs # 1 K/uL Polychromasia 1+ SLIGHT Anisocytosis 2+ MODERATE Target Cells 2+ MODERATE Smear Path Review APTT 80.4 H (18.6-31.3) SEC Sodium 139 (136-146) mmol/L Potassium 4.2 (3.5-5.1) mmol/L Chloride 110 (98-110) mmol/L Carbon Dioxide 20 L (21-31) mmol/L BUN 10 (6.0-23.0) mg/dL Creatinine 1.2 (0.6-1.5) mg/dL Est Cr Clr Drug Dosing 72.02 mL/min Estimated GFR (MDRD) > 60.0 ml/min Glucose 130 H (60-110) mg/dL Calcium 8.0 L (8.8-10.8) mg/dL Total Bilirubin 4.7 H (0.1-1.5) mg/dL AST 23 (5-40) IU/L ALT 19 (8-54) IU/L Alkaline Phosphatase 60 (40-150) Troponin I (0.0-0.29) NG/ML Total Protein 6.1 (6.0-8.0) g/dL Albumin 3.7 (3.5-5.0) g/dL Globulin 2.4 (2.0-3.5) g/dL Albumin/Globulin Ratio 1.5 (1.3-2.8) 02/25/17 Range/Units 11:18 WBC (4.0-11.0) K/uL RBC (4.50-5.90) M/uL Hgb (13.0-17.0) g/dL Hct (38.0-50.0) % MCV (80.0-98.0) fL MCH (27.0-32.0) pg MCHC (31.0-37.0) g/dL RDW Std Deviation (28.0-62.0) fl RDW Coeff of Mckay (11.0-15.0) % Plt Count (150-400) K/uL MPV (7.40-12.00) fL Add Manual Diff Neutrophils % (Manual) (48.0-80.0) % Band Neutrophils % % Lymphocytes % (Manual) (16.0-40.0) % Monocytes % (Manual) (0.0-15.0) % Eosinophils % (Manual) (0.0-7.0) % Basophils % (Manual) (0.0-1.5) % Nucleated RBC % /100WBC Absolute Seg Neuts Band Neutrophils # Lymphocytes # (Manual) Monocytes # (Manual) Eosinophils # (Manual) Basophils # (Manual) Nucleated RBCs % Nucleated RBCs # K/uL Polychromasia Anisocytosis Target Cells Smear Path Review APTT 56.2 H (18.6-31.3) SEC Sodium (136-146) mmol/L Potassium (3.5-5.1) mmol/L Chloride (98-110) mmol/L Carbon Dioxide (21-31) mmol/L BUN (6.0-23.0) mg/dL Creatinine (0.6-1.5) mg/dL Est Cr Clr Drug Dosing mL/min Estimated GFR (MDRD) ml/min Glucose (60-110) mg/dL Calcium (8.8-10.8) mg/dL Total Bilirubin (0.1-1.5) mg/dL AST (5-40) IU/L ALT (8-54) IU/L Alkaline Phosphatase (40-150) Troponin I (0.0-0.29) NG/ML Total Protein (6.0-8.0) g/dL Albumin (3.5-5.0) g/dL Globulin (2.0-3.5) g/dL Albumin/Globulin Ratio (1.3-2.8) Moises Results last 24 hrs: Microbiology 02/24/17 16:35 Anaerobic Blood Culture - Final Blood - Venous - Lab Draw Med Orders - Current: Current Medications Dextrose/Sodium Chloride (Dextrose 5%-1/2 Ns) 1,000 mls @ 125 mls/hr IV ASDIRECTED FRANNY Last Admin: 02/25/17 11:32 Dose: 125 mls/hr Heparin Sodium (Porcine) 25, (000 units/ Dextrose/Water) 505 mls @ 22.17 mls/ hr IV TITRATE FRANNY; 18 UNITS/KG/HR PRN Reason: Protocol Last Titration: 02/25/17 05:32 Dose: 16 units/kg/hr, 19.71 mls/hr Cefotaxime Sodium 1,000 mg/ (Sodium Chloride) 50 mls @ 100 mls/hr IV Q8HR [facility] Morphine Sulfate (Morphine) 2 mg IVPUSH Q2H PRN PRN Reason: Pain Last Admin: 02/25/17 10:20 Dose: 2 mg Discontinued Medications Azithromycin (Zithromax) 500 mg PO Q24H ONE Stop: 02/24/17 19:10 Last Admin: 02/24/17 19:40 Dose: 500 mg Diphtheria/Tetanus/Acell Pertussis (Adacel) 0.5 ml IM .ONCE ONE Stop: 02/24/17 15:46 Enoxaparin Sodium (Lovenox) 40 mg SUBCUT DAILY [facility] Heparin Sodium (Porcine) (Heparin Sodium) 4,880 units IV NOW ONE Stop: 02/24/17 22:31 Last Admin: 02/24/17 22:38 Dose: 4,880 units Cefotaxime Sodium 1,000 mg/ (Sodium Chloride) 50 mls @ 1 drops/hr IV Q8HR [facility] Cefotaxime Sodium 1,000 mg/ (Sodium Chloride) 50 mls @ 100 mls/hr IV Q8HR FRANNY Last Admin: 02/25/17 06:31 Dose: 100 mls/hr Heparin Sodium/Dextrose (Heparin 25,000 Units In D5w 500 Ml) 25,000 units in 500 mls @ 21.96 mls/hr IV TITRATE FRANNY; 18 UNITS/KG/HR PRN Reason: Protocol Cefotaxime Sodium 1,000 mg/ (Sodium Chloride) 50 mls @ 100 mls/hr IV Q8HR [facility] Iopamidol (Isovue Multipack-370 (76%)) 50 ml IVPUSH ONETIME STA Stop: 02/24/17 19:20 Last Admin: 02/24/17 20:45 Dose: 50 ml - Exam General: alert, oriented Lungs: Clear to auscultation, Normal respiratory effort Cardiovascular: Regular Rate, Regular Rhythm Abdomen: soft, no tenderness Extremities: no edema Skin: warm, dry, intact - Problem List Review Problem List Initiated/Reviewed/Updated: Yes - My Orders Last 24 Hours: My Active Orders 02/24/17 15:45 Vaccines to be Administered [RC] PER UNIT ROUTINE 02/24/17 15:48 CULTURE SPUTUM + SMEAR [RM] Routine Blood Culture x2 Reflex Set [OM.PC] Stat 02/24/17 15:49 Morphine 2 mg IVPUSH Q2H PRN 02/24/17 16:00 Dextrose 5%-0.45% NaCl [Dextrose 5%-1/2 NS] 1,000 ml IV ASDIRECTED 02/24/17 16:11 Telemetry Monitoring [Cardiac Monitoring] [RC] . DIRECTED 02/24/17 16:22 CULTURE BLOOD [BC] Stat 02/24/17 16:35 CULTURE BLOOD [BC] Stat 02/24/17 19:03 Up ad Ananya [RC] ASDIRECTED Resuscitation Status Routine 02/24/17 19:04 Patient Status [ADT] Routine Oxygen Therapy [RC] PRN Vital Signs [RC] Q4H 02/24/17 19:05 Intake and Output [RC] Q12H Sequential Compression Device [OM.PC] Per Unit Routine 02/24/17 19:06 Antiembolic Devices [RC] PER UNIT ROUTINE 02/24/17 21:55 Heparin Sodium 25,000 units Dextrose 5% in Water 500 ml IV TITRATE 02/24/17 Dinner Regular Diet [DIET] 02/25/17 11:26 May Shower [RC] ASDIRECTED 02/25/17 14:00 Cefotaxime [Claforan] 1,000 mg Sodium Chloride 0.9% [Normal Saline] 50 ml IV Q8HR 02/25/17 17:00 PTT,PARTIAL THROMBOPLSTIN TIME [COAG] Q6H 02/25/17 23:00 PTT,PARTIAL THROMBOPLSTIN TIME [COAG] Q6H 02/26/17 05:11 CBC WITH AUTO DIFF [HEME] AM COMPREHENSIVE METABOLIC PN,CMP [CHEM] AM - Plan Plan:: 36 yo male who presents with shortness of breath and syncope. CT angio reports small subsegmental filling defect consistent with small peripheral PE and decrease opacification in lower lobs conisistent with venous thrombus. Pulmonary arteries enlarged Shortness of breath: differential diagnosis includes acute chest syndrome, acute or chronic VTE disease, and pulmonary hypertension. Will check echocardiogram. Will continue IV fluids D51/2NS. Will treat empirically with cefotaxime and azithromycin.
[2017-02-25] MEDS ORDERED: Acetaminophen 325 MG Tab PO PRN (15:15)
[2017-02-25] MEDS: Bacitracin Oint 28.35 GM Tube TOP SCH ×2 (16:16→21:09)
[2017-02-25] MEDS ORDERED: Azithromycin 250 MG Tab PO SCH (18:00)
[2017-02-26] MEDS: Heparin Sodium 25,000 UNITS in Dextrose 5% in Water 500 ML IV SCH ×2 (01:49)
[2017-02-26] MEDS: Morphine 2 MG/ML Syringe IVPUSH PRN (01:52)
[2017-02-26 04:50] LABS: CHLORIDE,CL 110 mmol/L (98-110); SODIUM,NA 139 mmol/L (136-146)
[2017-02-26] MEDS: Cefotaxime 1,000 MG in Sodium Chloride 0.9% 50 ML IV SCH ×2 (05:16→14:10)
[2017-02-26] MEDS: Dextrose 5%-0.45% NaCl 1,000 ML IV SCH (07:50)
[2017-02-26] MEDS: Bacitracin Oint 28.35 GM Tube TOP SCH (08:32)
[2017-02-26 11:50] VITALS: BP 127/93
--- NOTE | 2017-02-26 12:55 | PCM.DCSUM1 ---
Discharge Summary - Discharge Data Discharge Date: 02/26/17 Discharge Disposition: Home, Self-Care 01 Condition: Good - Patient Summary/Data Hospital Course: Hospital diagnosis Acute Chest syndrome Subsegmental pulmonary embolism with questionable findings of pulmonary venous thrombus on CT Pulmonary hypertension 36 yo male with pmh of sickle cell disease who I have admitted twice since last July for acute chest syndrome. He presented with exertional dyspnea and syncope. He was seen in Dr. Khalil's clinic who referred him to direct admission. He was noted to be satting 84% on RA. His labs were significant for WBC of 16,730, Hgb of 13.8, and total bilirubin of 6.8. His CXR was clear. His CT angio reported small subsegmental filling defect consistent with small peripheral PE and decrease opacification in lower lobs consistent with venous thrombus. Pulmonary arteries were enlarged. He was treated with D51/2NS IV fluids. He was placed empirically on cefotaxime and azithromcyin. He was placed on heparin drip for VTE. Echocardiogram reported LV EF of 55 to 70%. Right ventricular systolic pressure is moderately elevated at 54.2 mmHg. He did have improvement in his dyspnea and oxygenation. At discharge he was satting 87% on RA. He does have home oxygen which he was using on a prn bases. He was dicharged on xarelto. He was also discharged on Azithromcyin for five more days. He was encouraged to continue his hydroxyurea. He is to follow up with Dr. Khalil. - Discharge Plan Prescriptions/Med Rec: Azithromycin [IJD: Azithromycin] 250 mg PO DAILY #5 tab Rivaroxaban [Xarelto] 15 mg PO BID #42 tablet Home Medications: Home Meds Albuterol [IJD: Albuterol HFA] 2 puff INH Q6HR PRN #8 gm 02/21/17 [Rx] Hydroxyurea 1,000 mg PO DAILY #60 capsule 02/21/17 [Rx] Azithromycin [IJD: Azithromycin] 250 mg PO DAILY #5 tab 02/26/17 [Rx] Rivaroxaban [Xarelto] 15 mg PO BID #42 tablet 02/26/17 [Rx] Referrals: Malik Khalil MD [Physician] - 03/03/17 9:00 am - Patient Data Vitals - Most Recent: Last Vital Signs Temp 36.7 C 02/26/17 08:00 Pulse 90 02/26/17 11:48 Resp 20 02/26/17 08:00 BP 127/93 H 02/26/17 11:48 Pulse Ox 90 L 02/26/17 11:48 Weight - Most Recent: 61.008 kg I&O - Last 24 hours: Intake & Output 02/25/17 02/26/17 02/26/17 22:59 06:59 14:59 Intake Total 690 3070 Output Total 675 600 Balance 15 2470 Lab Results - Last 24 hrs: Laboratory Results - last 24 hr 02/25/17 02/26/17 02/26/17 Range/Units 17:03 04:10 04:10 WBC 13.20 H (4.0-11.0) K/uL RBC 3.41 L (4.50-5.90) M/uL Hgb 10.2 L (13.0-17.0) g/dL Hct 27.9 L (38.0-50.0) % MCV 81.8 (80.0-98.0) fL MCH 29.9 (27.0-32.0) pg MCHC 36.6 (31.0-37.0) g/dL RDW Std Deviation 57.8 (28.0-62.0) fl RDW Coeff of Mckay 21 H (11.0-15.0) % Plt Count 282 (150-400) K/uL MPV 10.20 (7.40-12.00) fL Add Manual Diff YES Neutrophils % (Manual) 37 L (48.0-80.0) % Lymphocytes % (Manual) 52 H (16.0-40.0) % Monocytes % (Manual) 10 (0.0-15.0) % Eosinophils % (Manual) 1 (0.0-7.0) % Nucleated RBC % 19.6 /100WBC Absolute Seg Neuts 4.9 Lymphocytes # (Manual) 6.9 Monocytes # (Manual) 1.3 Eosinophils # (Manual) 0.1 Nucleated RBCs 26 % Nucleated RBCs # 2 K/uL Polychromasia 1+ SLIGHT Anisocytosis 2+ MODERATE APTT 50.4 H (18.6-31.3) SEC Sodium 139 (136-146) mmol/L Potassium 4.0 (3.5-5.1) mmol/L Chloride 110 (98-110) mmol/L Carbon Dioxide 22 (21-31) mmol/L BUN 6 (6.0-23.0) mg/dL Creatinine 1.0 (0.6-1.5) mg/dL Est Cr Clr Drug Dosing 86.43 mL/min Estimated GFR (MDRD) > 60.0 ml/min Glucose 117 H (60-110) mg/dL Calcium 7.9 L (8.8-10.8) mg/dL Total Bilirubin 3.2 H (0.1-1.5) mg/dL AST 29 (5-40) IU/L ALT 30 (8-54) IU/L Alkaline Phosphatase 56 (40-150) Total Protein 5.8 L (6.0-8.0) g/dL Albumin 3.5 (3.5-5.0) g/dL Globulin 2.3 (2.0-3.5) g/dL Albumin/Globulin Ratio 1.5 (1.3-2.8) // Range/Units 04:10 WBC (4.0-11.0) K/uL RBC (4.50-5.90) M/uL Hgb (13.0-17.0) g/dL Hct (38.0-50.0) % MCV (80.0-98.0) fL MCH (27.0-32.0) pg MCHC (31.0-37.0) g/dL RDW Std Deviation (28.0-62.0) fl RDW Coeff of Mckay (11.0-15.0) % Plt Count (150-400) K/uL MPV (7.40-12.00) fL Add Manual Diff Neutrophils % (Manual) (48.0-80.0) % Lymphocytes % (Manual) (16.0-40.0) % Monocytes % (Manual) (0.0-15.0) % Eosinophils % (Manual) (0.0-7.0) % Nucleated RBC % /100WBC Absolute Seg Neuts Lymphocytes # (Manual) Monocytes # (Manual) Eosinophils # (Manual) Nucleated RBCs % Nucleated RBCs # K/uL Polychromasia Anisocytosis APTT 56.4 H (18.6-31.3) SEC Sodium (136-146) mmol/L Potassium (3.5-5.1) mmol/L Chloride (98-110) mmol/L Carbon Dioxide (21-31) mmol/L BUN (6.0-23.0) mg/dL Creatinine (0.6-1.5) mg/dL Est Cr Clr Drug Dosing mL/min Estimated GFR (MDRD) ml/min Glucose (60-110) mg/dL Calcium (8.8-10.8) mg/dL Total Bilirubin (0.1-1.5) mg/dL AST (5-40) IU/L ALT (8-54) IU/L Alkaline Phosphatase (40-150) Total Protein (6.0-8.0) g/dL Albumin (3.5-5.0) g/dL Globulin (2.0-3.5) g/dL Albumin/Globulin Ratio (1.3-2.8) MARIE Results - Last 24 hrs: Microbiology 02/24/17 16:35 Aerobic Blood Culture - Preliminary Blood - Venous - Lab Draw NO GROWTH AFTER 1 DAY Anaerobic Blood Culture - Final 02/24/17 16:22 Aerobic Blood Culture - Preliminary Blood - Venous NO GROWTH AFTER 1 DAY Anaerobic Blood Culture - Preliminary NO GROWTH AFTER 1 DAY Med Orders - Current: Current Medications Acetaminophen (Tylenol) 650 mg PO Q4H PRN PRN Reason: Pain Last Admin: 02/25/17 16:57 Dose: 650 mg Azithromycin (Zithromax) 500 mg PO Q24H [facility] Last Admin: 02/25/17 18:20 Dose: 500 mg Bacitracin (Bacitracin Oint) 1 gm TOP BID [facility] Last Admin: 02/26/17 08:32 Dose: 1 applic Dextrose/Sodium Chloride (Dextrose 5%-1/2 Ns) 1,000 mls @ 125 mls/hr IV ASDIRECTED [facility] Last Admin: 02/26/17 07:50 Dose: 125 mls/hr Heparin Sodium (Porcine) 25, (000 units/ Dextrose/Water) 505 mls @ 22.17 mls/ hr IV TITRATE FRANNY; 18 UNITS/KG/HR PRN Reason: Protocol Last Admin: 02/26/17 01:49 Dose: 16 units/kg/hr, 19.71 mls/hr Cefotaxime Sodium 1,000 mg/ (Sodium Chloride) 50 mls @ 100 mls/hr IV Q8HR [facility] Last Admin: 02/26/17 05:16 Dose: 100 mls/hr Morphine Sulfate (Morphine) 2 mg IVPUSH Q2H PRN PRN Reason: Pain Last Admin: 02/26/17 01:52 Dose: 2 mg Discontinued Medications Azithromycin (Zithromax) 500 mg PO Q24H ONE Stop: 02/24/17 19:10 Last Admin: 02/24/17 19:40 Dose: 500 mg Diphtheria/Tetanus/Acell Pertussis (Adacel) 0.5 ml IM .ONCE ONE Stop: 02/24/17 15:46 Enoxaparin Sodium (Lovenox) 40 mg SUBCUT DAILY [facility] Heparin Sodium (Porcine) (Heparin Sodium) 4,880 units IV NOW ONE Stop: 02/24/17 22:31 Last Admin: 02/24/17 22:38 Dose: 4,880 units Cefotaxime Sodium 1,000 mg/ (Sodium Chloride) 50 mls @ 1 drops/hr IV Q8HR [facility] Cefotaxime Sodium 1,000 mg/ (Sodium Chloride) 50 mls @ 100 mls/hr IV Q8HR [facility] Last Admin: 02/25/17 06:31 Dose: 100 mls/hr Heparin Sodium/Dextrose (Heparin 25,000 Units In D5w 500 Ml) 25,000 units in 500 mls @ 21.96 mls/hr IV TITRATE FRANNY; 18 UNITS/KG/HR PRN Reason: Protocol Cefotaxime Sodium 1,000 mg/ (Sodium Chloride) 50 mls @ 100 mls/hr IV Q8HR [facility] Iopamidol (Isovue Multipack-370 (76%)) 50 ml IVPUSH ONETIME STA Stop: 02/24/17 19:20 Last Admin: 02/24/17 20:45 Dose: 50 ml *Q Meaningful Use (DIS) - VTE *Q VTE Criteria *Q: - Stroke *Q Stroke Criteria *Q: - AMI *Q AMI Criteria *Q:
[2017-02-26] MEDS ORDERED: Rivaroxaban 10 MG Tab PO ONE (13:05)
[2017-02-26] MEDS ORDERED: Diphtheria,Pertussis(Acell),Tetanus Vaccine 0.5 ML Syringe IM ONE (14:15)
--- NOTE | 2017-02-26 19:26 | ECHO ---
The echocardiogram report can be found in the patient's EMR (electronic medical record) in the Reports section. GWEN
== END 2017-02-26 14:55 | disposition home or self-care (01) | DRG 812 ==
LOC: MW.MS 15:24
PROVIDERS: ADMIT Internal Medicine; ATTEND Internal Medicine
PROC: 3E0234Z Introduction of Serum, Toxoid and Vaccine into Muscle, Percutaneous Approach (ICD-10-PCS; principal; 2017-02-26)
DX: D57.811 Other sickle-cell disorders with acute chest syndrome (principal); I27.2 Other secondary pulmonary hypertension; Z99.81 Dependence on supplemental oxygen; R55 Syncope and collapse; Z23 Encounter for immunization
CPT/HCPCS: 36415; 71020; 71020-26; 71275; 71275-26; 80053; 84484; 85025; 85027; 85730; 87040; 88104; 90715; 93005; 93306; A9270-GY; J0698; J1644; J2270; J7042; J7050; J7060; Q9967